=== PATIENT | male | born 1945 | race Caucasian/White ===

== ENCOUNTER 2017-02-14 09:44 | Outpatient (CLI) | payer MEDICARE, OTHER | END 2017-02-14 09:45 | disposition home or self-care (01) | LOC: SC 09:44 | PROVIDERS: ATTEND Specialist | DX: G47.30 Sleep apnea, unspecified (principal); G47.8 Other sleep disorders; R06.83 Snoring; G47.10 Hypersomnia, unspecified | CPT/HCPCS: 99205; G0463; 99212 ==

== ENCOUNTER 2017-02-17 22:20 | Outpatient (CLI) | payer MEDICARE, OTHER | END 2017-02-17 22:21 | disposition home or self-care (01) | LOC: SC 22:20 | PROVIDERS: ATTEND Specialist | DX: G47.33 Obstructive sleep apnea (adult) (pediatric) (principal); G47.31 Primary central sleep apnea | CPT/HCPCS: 95810 ==

== ENCOUNTER 2017-02-28 09:31 | Outpatient (CLI) | payer MEDICARE, OTHER | END 2017-02-28 09:32 | disposition home or self-care (01) | LOC: SC 09:31 | PROVIDERS: ATTEND Specialist | DX: G47.33 Obstructive sleep apnea (adult) (pediatric) (principal); G47.31 Primary central sleep apnea | CPT/HCPCS: 99213; G0463; 99212 ==

== ENCOUNTER 2017-03-24 06:21 | Emergency (ER) | payer MEDICARE, OTHER ==
--- NOTE | 2017-03-24 06:51 | ED Physician Documentation ---
History of Present Illness - History obtained from History obtained from: Patient - History of Present Illness Timing: Yesterday <Ganesh Garcia - Last Filed: 03/24/17 06:49> <Michael Lee - Last Filed: 03/24/17 09:21> - Stated complaint Stated Complaint: R LEG SWELLING - Chief complaint Chief Complaint: Ext Problem - Additonal information Additional information: 71-year-old diabetic male with history of previous atrial fibrillation who is on Xarelto as developed swelling of the right lower extremity that extends up into his thigh. He has exquisite tenderness to the right lateral malleolus and this is unusual for him. He does have occasionally swelling to his right lower extremity that has been much less since he has had his knee replaced. He did spend some time walking around yesterday and today he has the swelling and he has the pain in the ankle. He did not injure his ankle. (Ganesh Garcia) Review of Systems Constitutional: denies: Fever Nose: denies: Congestion Throat: denies: Sore throat Cardiac: denies: Chest pain / pressure, Palpitations Respiratory: denies: Dyspnea, Cough GI: denies: Nausea, Vomiting : denies: Dysuria, Frequency Skin: denies: Rash Musculoskeletal: reports: Extremity pain, Joint pain, Extremity swelling, Joint swelling, Pain with weight bearing. denies: Neck pain, Back pain Neurologic: denies: Generalized weakness, Focal weakness, Numbness <Ganesh Garcia - Last Filed: 03/24/17 06:49> PD PAST MEDICAL HISTORY - Past Medical History Past Medical History: Yes Cardiovascular: Hypertension, Coronary artery disease Neuro: None Endocrine/Autoimmune: Type 2 diabetes Psych: None Musculoskeletal: Osteoarthritis - Past Surgical History General: Bowel surgery Cardiovascular: Coronary stent - Social History Does the pt smoke?: No Smoking Status: Never smoker Does the pt drink ETOH?: No Does the pt have substance abuse?: No - Immunizations Immunizations are current?: Yes - POLST Patient has POLST: No <Ganesh Garcia - Last Filed: 03/24/17 06:49> <Michael Lee - Last Filed: 03/24/17 09:21> - Present Medications Home Medications: Ambulatory Orders Medication Instructions Recorded Confirmed Aspirin Chewable [St Christoph 81 mg PO DAILY 12/02/13 08/29/16 Aspirin] Atorvastatin Calcium [Lipitor] 20 mg ORAL ONCEDAILY 12/02/13 08/29/16 Clopidogrel [Plavix] 75 mg PO DAILY 12/02/13 08/29/16 Glipizide 5 mg ORAL BID 12/02/13 08/29/16 Lisinopril [Zestril] 10 mg PO DAILY 12/02/13 08/29/16 Metoprolol Succinate 25 mg ORAL BID 12/02/13 03/24/17 Tamsulosin [Flomax] 0.4 mg PO DAILY 12/02/13 08/29/16 Diphenoxylate/Atropine [Lomotil] 1 each PO QID PRN #10 tablet 10/19/15 Insulin NPH Hum/Reg Insulin Hm 100 unit SQ BID 08/29/16 08/29/16 [Novolin 70-30 100 Unit/ml Vial] Colchicine 0.6 mg PO BID #14 capsule 03/24/17 Rivaroxaban [Xarelto] 20 mg PO DAILY 03/24/17 03/24/17 oxyCODONE/ACET 5/325 [Percocet 5 1 each PO Q4-6H PRN #16 tablet 03/24/17 mg/325 mg] - Allergies Allergies/Adverse Reactions: Allergies Allergy/AdvReac Type Severity Reaction Status Date / Time No Known Drug Allergies Allergy Verified 08/29/16 20:42 PD ED PE NORMAL - Vitals Vital signs reviewed: Yes (Normal) - General General: Alert and oriented X 3, No acute distress, Well developed/nourished - HEENT HEENT: Atraumatic, PERRL - Respiratory Respiratory: No respiratory distress - Derm Derm: Normal color, Warm and dry, No rash - Extremities Extremities: No deformity, Other (There is swelling of the right leg including the foot calf and up into the thigh. There is minimal tenderness to the posterior calf there is exquisite tenderness to the right lateral malleolus. There is tenderness to movement of the foot.) - Neuro Neuro: No motor deficit, No sensory deficit - Psych Psych: Normal mood, Normal affect <Ganesh Garcia - Last Filed: 03/24/17 06:49> - Vitals Vitals: Vital Signs - 24 hr 03/24/17 06:28 Temperature 36.5 C Heart Rate 71 Respiratory 16 Rate Blood Pressure 129/71 O2 Saturation 98 Oxygen O2 Source [With Activity] Room air O2 Source Room air - Labs Labs: Laboratory Tests 03/24/17 03/24/17 08:16 08:16 WBC 7.6 RBC 4.06 L Hgb 12.5 L Hct 36.1 L MCV 89.0 MCH 30.9 MCHC 34.7 RDW 15.8 H Plt Count 170 MPV 7.6 Neut # 5.7 Lymph # 1.1 L Howard # 0.6 Eos # 0.2 Baso # 0.0 Absolute Nucleated RBC 0.00 Nucleated RBCs 0.0 Sodium 134 L Potassium 4.9 Chloride 104 Carbon Dioxide 23 Anion Gap 7.0 BUN 26 H Creatinine 1.1 Estimated GFR (MDRD) 66 L Glucose 203 H Uric Acid 8.0 H Calcium 9.7 PD MEDICAL DECISION MAKING - ED course Complexity details: considered differential, d/w patient <Ganesh Garcia - Last Filed: 03/24/17 06:49> <Michael Lee - Last Filed: 03/24/17 09:21> - ED course ED course: 71-year-old male has developed swelling in his right lower extremity that is generalized he has a history of this previously and today is here because of marked tenderness to the ankle joint. He did not have history of injury to the ankle. He does have a history previously of gout that is usually been in the toe. When I have examined the patient he does have exquisite tenderness to the lateral malleolus consistent with gout. Here in the emergency department I thought it important to rule out DVT and of ordered a duplex venous exam. In addition he is treated in the emergency department with dexamethasone and Toradol.I have discussed with the patient that he will need to use his sliding scale insulin having been given the dexamethasone. (Ganesh Garcia) This patient was signed out to me pending evaluation of his leg with duplex ultrasound. He presented primarily with right ankle pain which she has frequently although the pain on this occurrence was a little worse and continues to get worse. Normally has stiffness ankle and with walking it goes away. He also says he has a distant history of gout. He denies any significant swelling of the leg and this is really his pain is located at the ankle joint and it feels stiff and swollen. On examination he has had a total knee replacement on that right leg and really do not see any significant change in size when the right is compared with the left. The right ankle is slightly swollen and warm to touch in comparison with the unaffected left. From a vascular standpoint he has great pulses and normal coloration of the skin. Radiographs of the ankle were performed and a formal read is not present at this time but it looks like he has mild arthritic changes. Blood work demonstrates elevated uric acid at 8 and clinically and by testing and think this patient has gout. He will be placed Short course of colchicine, she just this on a short course of colchicine and careful use of nonsteroidal anti- inflammatory since he does have some evidence of mild chronic kidney disease. (Michael Lee) Departure <Ganesh Garcia - Last Filed: 03/24/17 06:49> - Departure Record reviewed to determine appropriate education?: Yes <Michael Lee - Last Filed: 03/24/17 09:21> - Departure Disposition: 01 Home, Self Care Clinical Impression: Gout Pain of lower extremity Qualifiers: Laterality: right Qualified Code(s): M79.604 - Pain in right leg Condition: Good Instructions: ED Arthritis Gout Follow-Up: Ru Desir MD [Primary Care Provider] - Prescriptions: Colchicine 0.6 mg PO BID #14 capsule oxyCODONE/ACET 5/325 [Percocet 5 mg/325 mg] 1 each PO Q4-6H PRN #16 tablet PRN Reason: Pain
[2017-03-24] MEDS ORDERED: CHERRY SYRUP 10 ML UDC PO ONE (06:54)
[2017-03-24] MEDS ORDERED: DEXAMETHASONE 10 MG/ML VIAL ONE (06:54)
[2017-03-24] MEDS ORDERED: KETOROLAC 60 MG/2 ML VIAL ONE (06:55)
[2017-03-24] MEDS: KETOROLAC 60 MG/2 ML VIAL IM STA ×2 (06:58→08:50)
[2017-03-24] MEDS: DEXAMETHASONE 10 MG/ML VIAL PO STA (06:59)
--- NOTE | 2017-03-24 08:06 | Ultrasound Preliminary Report ---
Exam: US Duplex Ext Veins Right IMPRESSION: No evidence of right lower extremity deep venous thrombosis. [facility] SITE ID: [id number]
--- NOTE | 2017-03-24 08:08 | Ultrasound Report ---
EXAM: RIGHT LOWER EXTREMITY VENOUS ULTRASOUND EXAM DATE: 03/24/2017 07:53 AM. CLINICAL HISTORY: Swelling and pain to entire leg. COMPARISON: None. TECHNIQUE: Real-time sonographic vascular imaging was performed by the drywall installer through the lower extremity utilizing both color-flow and Doppler spectral analysis. Multiple personnel representative static vinod ges were saved for review. FINDINGS: Common Femoral Vein (CFV): Normal. CFV-GSV Junction: Normal. Profunda Femoral Vein (PFV): Normal. Femoral Vein (FV) Prox: Normal. Femoral Vein (FV) Mid: Normal. Femoral Vein (FV) Dist: Normal. Popliteal Vein: Normal. Posterior Tibial Veins: Patent. Peroneal Veins: Patent. Other: None. IMPRESSION: No evidence of right lower extremity deep venous thrombosis. [facility] Referring Provider Line: [phone] SITE ID: [id number]
[2017-03-24 08:22] LABS: BASOPHILS % (AUTO) 0.4 %; EOSINOPHILS # (AUTO) 0.2 10^3/uL (0.0-0.7); EOSINOPHILS % (AUTO) 2.2 %; HCT - HEMATOCRIT 36.1 % (42.0-52.0); HGB - HEMOGLOBIN 12.5 g/dL (14.0-18.0); LYMPHOCYTES # (AUTO) 1.1 10^3/uL (1.5-3.5); LYMPHOCYTES % (AUTO) 14.2 %; MEAN CORPUSCULAR HEMOGLOBIN 30.9 pg (27.0-31.0); MEAN CORPUSCULAR HGB CONC 34.7 g/dL (32.0-36.0); MEAN PLATELET VOLUME 7.6 fL (7.4-11.4); MONOCYTES # (AUTO) 0.6 10^3/uL (0.0-1.0); MONOCYTES % (AUTO) 7.7 %; NEUTROPHILS # (AUTO) 5.7 10^3/uL (1.5-6.6); NEUTROPHILS % (AUTO) 75.5 %; RED BLOOD COUNT 4.06 10^6/uL (4.70-6.10); RED CELL DISTRIBUTION WIDTH 15.8 % (12.0-15.0); UNCORRECTED WHITE BLOOD COUNT 7.6 x10^3/uL; WHITE BLOOD COUNT 7.6 x10^3/uL (4.8-10.8)
[2017-03-24 08:34] LABS: CALCIUM 9.7 mg/dL (8.5-10.3); CREATININE 1.1 mg/dL (0.6-1.2); POTASSIUM 4.9 mmol/L (3.5-5.0)
[2017-03-24] MEDS ORDERED: KETOROLAC 30 MG/ML VIAL ONE (08:46)
[2017-03-24] MEDS: MORPHINE 2 MG/ML SYRINGE IVP STA (08:50)
[2017-03-24] MEDS: SODIUM CHLORIDE 0.9% 1,000 ML IV ONE (08:50)
[2017-03-24] MEDS: KETOROLAC 60 MG/2 ML VIAL IVP STA (08:50)
[2017-03-24] MEDS: HYDROcod/ACETAM 5/325 MG TABLET PO STA (08:50)
--- NOTE | 2017-03-24 09:16 | XRAY Preliminary Report ---
Exam: XR Ankle 3 View RT IMPRESSION: Soft tissue swelling without underlying bony pathology right ankle [facility] SITE ID: [id number]
--- NOTE | 2017-03-24 09:18 | XRAY Report ---
EXAM: RIGHT ANKLE RADIOGRAPHY EXAM DATE: 03/24/2017 09:02 AM. CLINICAL HISTORY: Ankle swelling. COMPARISON: None. TECHNIQUE: 3 views. FINDINGS: Bones: No fractures or bone lesions. Plantar calcaneal spur Joints: Normal. No effusion. No subluxations. The ankle mortise is normally aligned. Soft Tissues: Lateral soft tissue swelling. Vascular calcification. IMPRESSION: Soft tissue swelling without underlying bony pathology right ankle [facility] Referring Provider Line: [phone] SITE ID: [id number]
[2017-03-24 09:33] VITALS: BP 133/64
== END 2017-03-24 09:33 | disposition home or self-care (01) ==
LOC: ED 06:21
DX: M10.9 Gout, unspecified (principal); M79.661 Pain in right lower leg; I48.91 Unspecified atrial fibrillation; Z79.01 Long term (current) use of anticoagulants; E11.9 Type 2 diabetes mellitus without complications; Z79.4 Long term (current) use of insulin; I10 Essential (primary) hypertension; I25.10 Atherosclerotic heart disease of native coronary artery without angina pectoris; M19.90 Unspecified osteoarthritis, unspecified site; Z79.82 Long term (current) use of aspirin
CPT/HCPCS: 36415; 80048; 84550; 85025; 96372; 99283

== ENCOUNTER 2017-03-28 19:43 | Outpatient (CLI) | payer MEDICARE, OTHER | END 2017-03-28 19:44 | disposition home or self-care (01) | LOC: SC 19:43 | PROVIDERS: ATTEND Specialist | DX: G47.33 Obstructive sleep apnea (adult) (pediatric) (principal); G47.61 Periodic limb movement disorder; Z68.39 Body mass index [BMI] 39.0-39.9, adult | CPT/HCPCS: 95811 ==

== ENCOUNTER 2017-04-12 14:14 | Outpatient (CLI) | payer MEDICARE, OTHER | END 2017-04-12 14:15 | disposition home or self-care (01) | LOC: SC 14:14 | PROVIDERS: ATTEND Nurse Practitioner Family | DX: G47.33 Obstructive sleep apnea (adult) (pediatric) (principal) | CPT/HCPCS: 99214; G0463; 99212 ==

== ENCOUNTER 2017-06-13 10:18 | Outpatient (CLI) | payer MEDICARE, OTHER | END 2017-06-13 10:19 | disposition home or self-care (01) | LOC: SC 10:18 | PROVIDERS: ATTEND Specialist | DX: G47.33 Obstructive sleep apnea (adult) (pediatric) (principal) | CPT/HCPCS: 99214; G0463; 99212 ==

== ENCOUNTER 2017-07-13 18:57 | Outpatient (CLI) | payer MEDICARE, OTHER ==
--- NOTE | 2017-07-14 08:24 | Ultrasound Report ---
EXAM: LEFT LOWER EXTREMITY VENOUS ULTRASOUND EXAM DATE: 07/13/2017 09:07 PM. CLINICAL HISTORY: LEG PAIN, LEFT. COMPARISON: None. TECHNIQUE: Real-time sonographic vascular imaging was performed by the heel burnisher through the lower extremity utilizing both color-flow and Doppler spectral analysis. Multiple community service representative static vinod ges were saved for review. FINDINGS: Common Femoral Vein (CFV): Normal. CFV-GSV Junction: Normal. Profunda Femoral Vein (PFV): Normal. Femoral Vein (FV) Prox: Normal. Femoral Vein (FV) Mid: Normal. Femoral Vein (FV) Dist: Normal. Popliteal Vein: Normal. Posterior Tibial Veins: Normal. Peroneal Veins: Normal. Other: None. IMPRESSION: No evidence for left lower extremity deep venous thrombosis. [facility] Referring Provider Line: [phone] SITE ID: [id number]
== END 2017-07-13 18:58 | disposition home or self-care (01) ==
LOC: DI 18:57
PROVIDERS: ATTEND Family Medicine
DX: M79.605 Pain in left leg (principal)
CPT/HCPCS: 76882

== ENCOUNTER 2017-07-13 19:01 | Outpatient (CLI) | payer MEDICARE, OTHER ==
--- NOTE | 2017-07-14 08:49 | Ultrasound Report ---
EXAM: LEFT LOWER EXTREMITY ULTRASOUND NONVASCULAR - LIMITED EXAM DATE: 07/13/2017 09:06 PM. CLINICAL HISTORY: Leg pain, left. COMPARISON: None. TECHNIQUE: Real-time scanning was performed by the technologist (interpreting radiologist not present ) with static images obtained. FINDINGS: There are multiple, parallel, elliptical-shaped hypoechoic foci within the deep soft tissue s of the lower leg all demonstrated in reported areas of pain, some apparently in areas of visible br uising also. At the lateral left hip it measures 1.1 x 0.5 x 1.4 cm, lateral knee 1.2 x 0.6 x 1.2, me dial knee 3.8 x 0.5 x 0.9 cm, anterior mid calf 1.3 x 0.4 cm. In areas of pain described as the distal SVC both medial and lateral regions, and areas of bruising a nd pain in the lateral ankle/calf mid to distal region, no sonographic abnormality is demonstrated. IMPRESSION: Multiple lentiform hypoechoic focal areas within the deep soft tissues of the left leg co rresponding with areas of pain and bruising. These have a high likelihood of representing areas of fo lucius hemorrhage/hematoma. However, they are not specific. Infection/abscess could not be excluded in t he appropriate clinical setting. [facility] Referring Provider Line: [phone] SITE ID: [id number]
== END 2017-07-13 19:02 | disposition home or self-care (01) ==
LOC: DI 19:01
PROVIDERS: ATTEND Family Medicine
DX: M79.605 Pain in left leg (principal)
CPT/HCPCS: 76882

== ENCOUNTER 2017-09-05 09:40 | Outpatient (CLI) | payer MEDICARE, OTHER ==
[2017-09-05 13:27] LABS: ALBUMIN/GLOBULIN RATIO 1.2 (1.0-2.2); BILIRUBIN,TOTAL 0.6 mg/dL (0.2-1.0); CALCIUM 9.5 mg/dL (8.5-10.3); CREATININE 1.3 mg/dL (0.6-1.2); POTASSIUM 4.6 mmol/L (3.5-5.0); TOTAL PROTEIN 7.5 g/dL (6.7-8.2)
[2017-09-05 13:49] LABS: HEMOGLOBIN A1C 0.83 g/dL
== END 2017-09-05 09:41 | disposition home or self-care (01) ==
LOC: LAB.WCP 09:40
PROVIDERS: ATTEND Family Medicine
DX: G47.33 Obstructive sleep apnea (adult) (pediatric) (principal); E11.9 Type 2 diabetes mellitus without complications; I48.91 Unspecified atrial fibrillation; I25.10 Atherosclerotic heart disease of native coronary artery without angina pectoris
CPT/HCPCS: 36415; 80053; 83036

== ENCOUNTER 2018-06-04 08:37 | Outpatient (CLI) | payer MEDICARE, OTHER ==
[2018-06-04 13:33] LABS: ALBUMIN 4.3 g/dL (3.2-5.5); ALBUMIN/GLOBULIN RATIO 1.4 (1.0-2.2); BILIRUBIN,TOTAL 0.7 mg/dL (0.2-1.0); CALCIUM 9.5 mg/dL (8.5-10.3); CREATININE 1.1 mg/dL (0.6-1.2); TOTAL PROTEIN 7.4 g/dL (6.7-8.2)
[2018-06-04 13:47] LABS: HEMOGLOBIN A1C 0.94 g/dL; HEMOGLOBIN A1C % 7.9 % (4.6-6.2)
== END 2018-06-04 08:38 | disposition home or self-care (01) ==
LOC: LAB.WCP 08:37
PROVIDERS: ATTEND Family Medicine
DX: D12.6 Benign neoplasm of colon, unspecified (principal); E11.22 Type 2 diabetes mellitus with diabetic chronic kidney disease; N18.3 Chronic kidney disease, stage 3 (moderate); I48.0 Paroxysmal atrial fibrillation; I25.10 Atherosclerotic heart disease of native coronary artery without angina pectoris
CPT/HCPCS: 36415; 80053; 82043; 83036

== ENCOUNTER 2018-06-19 09:48 | Outpatient (CLI) | payer MEDICARE, OTHER | END 2018-06-19 09:49 | disposition home or self-care (01) | LOC: SC 09:48 | PROVIDERS: ATTEND Nurse Practitioner Family | DX: G47.33 Obstructive sleep apnea (adult) (pediatric) (principal) | CPT/HCPCS: 99214; G0463; 99212 ==

== ENCOUNTER 2018-07-23 08:48 | Outpatient (CLI) | payer MEDICARE, OTHER | END 2018-07-23 08:49 | disposition home or self-care (01) | LOC: SC 08:48 | PROVIDERS: ATTEND Nurse Practitioner Family | DX: G47.33 Obstructive sleep apnea (adult) (pediatric) (principal) | CPT/HCPCS: 99214; G0463; 99212 ==

== ENCOUNTER 2018-09-04 08:00 | Outpatient (CLI) | payer MEDICARE, OTHER ==
[2018-09-04 13:09] LABS: ALBUMIN 3.9 g/dL (3.2-5.5); ALBUMIN/GLOBULIN RATIO 1.3 (1.0-2.2); ALKALINE PHOSPHATASE 51 IU/L (42-121); ALT ALANINE AMINOTRANSFERASE 26 IU/L (10-60); AST ASPARTATE AMINOTRANSFERASE 19 IU/L (10-42); BILIRUBIN,TOTAL 0.8 mg/dL (0.2-1.0); BUN - BLOOD UREA NITROGEN 22 mg/dL (6-20); CALCIUM 9.2 mg/dL (8.5-10.3); CARBON DIOXIDE - CO2 27 mmol/L (21-32); CHLORIDE 102 mmol/L (101-111); CREATININE 1.1 mg/dL (0.6-1.2); GFR - MDRD 66 (>89); GLUCOSE 107 mg/dL (70-100); SODIUM 139 mmol/L (135-145)
[2018-09-04 13:21] LABS: HB2 TOTAL 13.7 g/dL; HEMOGLOBIN A1C 0.83 g/dL; HEMOGLOBIN A1C % 7.7 % (4.6-6.2)
== END 2018-09-04 23:59 | disposition home or self-care (01) ==
LOC: LAB.WCP 08:00
PROVIDERS: ATTEND Family Medicine
DX: E11.40 Type 2 diabetes mellitus with diabetic neuropathy, unspecified (principal); I48.0 Paroxysmal atrial fibrillation; Z13.29 Encounter for screening for other suspected endocrine disorder
CPT/HCPCS: 36415; 80053; 83036; 84443

== ENCOUNTER 2018-09-29 09:02 | Emergency (ER) | payer MEDICARE, OTHER ==
[2018-09-29 09:27] VITALS: BP 149/82
[2018-09-29] MEDS ORDERED: ACETAMINOPHEN 325 MG TABLET PO STA (09:57)
[2018-09-29] MEDS ORDERED: LIDOCAINE PATCH 5% TOP STA (09:57)
--- NOTE | 2018-09-29 10:00 | ED Physician Documentation ---
History of Present Illness - Stated complaint Stated Complaint: LEFT LEG PX - Chief complaint Chief Complaint: Ext Problem - Additonal information Additional information: hx from pt very active 73 male on coumadin for a fib pain bruise swellign to ant L aiken X few days not sure of any injury unless he banged it putting the cargo net into his car last week his wanted to be sure it was not infected no CP SOA etc Review of Systems Constitutional: denies: Fever Cardiac: denies: Chest pain / pressure Respiratory: denies: Dyspnea Musculoskeletal: reports: Extremity pain Endocrine: reports: Easy bruising / bleeding Immunocompromised: denies: Immunocompromised PD PAST MEDICAL HISTORY - Past Medical History Past Medical History: Yes Cardiovascular: Hypertension, Coronary artery disease Respiratory: Sleep apnea, CPAP use Endocrine/Autoimmune: Type 2 diabetes Psych: None Musculoskeletal: Osteoarthritis - Past Surgical History General: Bowel surgery Ortho: Knee replacement Cardiovascular: Coronary stent - Present Medications Home Medications: Ambulatory Orders Medication Instructions Recorded Confirmed Aspirin Chewable [St Christoph 81 mg PO DAILY 12/02/13 06/27/17 Aspirin] Atorvastatin Calcium [Lipitor] 20 mg ORAL ONCEDAILY 12/02/13 06/27/17 Glipizide 5 mg ORAL BIDWM 12/02/13 06/27/17 Lisinopril [Zestril] 10 mg PO DAILY 12/02/13 06/27/17 Tamsulosin [Flomax] 0.4 mg PO DAILY 12/02/13 06/27/17 Insulin NPH Hum/Reg Insulin Hm 40 unit SQ BIDWM 08/29/16 06/27/17 [Novolin 70-30 100 Unit/ml Vial] Fluticasone [Flonase] 1 sprays KIKA BID PRN 06/27/17 06/27/17 Furosemide 40 mg PO DAILY 06/27/17 06/27/17 Metformin HCl 1,000 mg PO BIDWM 06/27/17 06/27/17 Sotalol [Betapace] 80 mg PO BID 06/27/17 06/27/17 Insulin NPH Human [NovoLIN N] 08/14/17 Insulin NPH Human [NovoLIN N] 24 - 28 units SUBQ BID 08/14/17 08/14/17 Insulin Regular Human [NovoLIN R] 16 units SUBQ BIDWM 08/14/17 08/14/17 Warfarin Sodium [Coumadin] 10 mg PO DAILY 09/29/18 09/29/18 - Allergies Allergies/Adverse Reactions: Allergies Allergy/AdvReac Type Severity Reaction Status Date / Time No Known Drug Allergies Allergy Verified 08/29/16 20:42 - Social History Does the pt smoke?: No Smoking Status: Never smoker Does the pt drink ETOH?: No Does the pt have substance abuse?: No - Immunizations Immunizations are current?: Yes - POLST Patient has POLST: No PD ED PE NORMAL - Vitals Vital signs reviewed: Yes - Cardiac Cardiac: RRR - Respiratory Respiratory: No respiratory distress - Extremities Extremities: Other (focal pain and bruising to ant LLE, small whote spot upper medial aspect more c/w hypopigmented skin, no redness warmth streaking or head to suggest abscess, MSV intact) Results - Vitals Vitals: Vital Signs - 24 hr 09/29/18 09:23 Temperature 36.2 C L Heart Rate 78 Respiratory 20 Rate Blood Pressure 149/82 H O2 Saturation 98 Oxygen O2 Source [With Activity] Room air O2 Source Room air - Labs Labs: Laboratory Tests 09/29/18 09:54 Whole Blood INR 4.2 H Departure - Departure Disposition: Home, Self Care Clinical Impression: Contusion Qualifiers: Encounter type: initial encounter Contusion area: lower leg Laterality: left Qualified Code(s): S80.12XA - Contusion of left lower leg, initial encounter Condition: Good Instructions: ED Hematoma Follow-Up: Ru Desir MD [Primary Care Provider] - Comments: The xray was fine The leg does not appear to be infected - it is not red or warm and there are no streaks and the white spot seems to a hypopigmented area of skin not an abscess. Your INR was a touch high today at 4.2 - recommend hold the coumadin for one day then resume as before and have your PMD recheck the INR later this week Recommend ice wrapped in a towel applied for 20 minutes at a time several times a day. Tylenol for pain. Can also try applying a lidocaine patch over the bruise to ease the pain - may leave on for up to 12 hr a day.
--- NOTE | 2018-09-29 10:36 | XRAY Report ---
Reason: pain and bruise Procedure Date: 09/29/2018 Accession Number: [id number] / [id number] Procedure: XR - Tib/Fib LT CPT Code: FULL RESULT: EXAM: LEFT TIBIA/FIBULA RADIOGRAPHY EXAM DATE: 09/29/2018 10:16 AM. CLINICAL HISTORY: Pain and bruise. COMPARISON: None. TECHNIQUE: 2 views. FINDINGS: Bones: Bony mineralization appears appropriate. No acute fracture or focal osseous destruction. Joints: Alignment and joint spaces appear maintained. Soft Tissues: No radiopaque foreign body. Mild soft tissue swelling. A few small soft tissue calcifications. IMPRESSION: Soft tissue swelling. No acute fracture or dislocation. [facility]
== END 2018-09-29 11:08 | disposition home or self-care (01) ==
LOC: ED 09:02
DX: S80.12XA Contusion of left lower leg, initial encounter (principal); I10 Essential (primary) hypertension; E11.9 Type 2 diabetes mellitus without complications; Z79.01 Long term (current) use of anticoagulants; Z86.79 Personal history of other diseases of the circulatory system; Z79.4 Long term (current) use of insulin; X58.XXXA Exposure to other specified factors, initial encounter
CPT/HCPCS: 73590; 85610; 99283; A9270

== ENCOUNTER 2018-10-02 07:09 | Day surgery (SDC) | payer MEDICARE, OTHER ==
[2018-10-02] MEDS ORDERED: LACTATED RINGERS 1,000 ML IV ONE (07:37)
[2018-10-02] MEDS ORDERED: MIDAZOLAM 2 MG/2 ML VIAL IVP ONE (08:12)
[2018-10-02] MEDS ORDERED: fentaNYL 250 MCG/5 ML VIAL IVP ONE (08:12)
[2018-10-02 08:44] VITALS: BP 125/68
--- NOTE | 2018-10-02 10:41 | PROCEDURE REPORT ---
DATE OF SERVICE: 10/02/2018 Physician: Domingo Mathews MD PREOPERATIVE DIAGNOSIS: Screening colonoscopy. POSTOPERATIVE DIAGNOSIS: Incomplete colonoscopy. PROCEDURE PERFORMED: Aborted colonoscopy. INDICATIONS FOR PROCEDURE: The patient is a 73-year-old man who came to clinic requesting a normal s creening colonoscopy. PROCEDURE IN DETAIL: The risks, benefits were explained to the patient, who agreed to the procedure. He was taken to the operating room and given sedation. A timeout was performed, everyone in the ro om agreed with the procedure. We began by inserting a well-lubricated colonoscope in the rectal cavi ty. Immediately noted, the prep was terrible. Visualization was inadequate. After reaching the si gmoid colon, it was impossible to advance due to poor prep. Numerous attempts made to clean out the colon; however, it was just futile. The scope was then withdrawn, the procedure terminated. The pat ient was taken to recovery in stable condition. COMPLICATIONS: None. SPECIMEN: None. PLAN: To repeat the colonoscopy at a later date. TD: 10/02/2018 08:43
== END 2018-10-02 07:10 | disposition home or self-care (01) ==
LOC: SDS 07:09
PROVIDERS: ATTEND Surgery
PROC: 0DJD8ZZ Inspection of Lower Intestinal Tract, Via Natural or Artificial Opening Endoscopic (ICD-10-PCS; principal; 2018-10-02 08:15)
DX: Z12.11 Encounter for screening for malignant neoplasm of colon (principal); Z79.01 Long term (current) use of anticoagulants; E66.9 Obesity, unspecified; Z68.41 Body mass index [BMI] 40.0-44.9, adult
CPT/HCPCS: G0121; J3010; J7120

== ENCOUNTER 2018-11-22 08:00 | Outpatient (CLI) | payer MEDICARE, OTHER | END 2018-11-22 23:59 | disposition home or self-care (01) | LOC: LAB.WCP 08:00 | PROVIDERS: ATTEND Family Medicine | DX: I48.0 Paroxysmal atrial fibrillation (principal); Z79.01 Long term (current) use of anticoagulants ==

== ENCOUNTER 2018-12-06 08:00 | Outpatient (CLI) | payer MEDICARE, OTHER ==
[2018-12-06 13:28] LABS: ALBUMIN 4.2 g/dL (3.2-5.5); ALBUMIN/GLOBULIN RATIO 1.2 (1.0-2.2); BILIRUBIN,TOTAL 0.7 mg/dL (0.2-1.0); CALCIUM 9.2 mg/dL (8.5-10.3); CREATININE 1.1 mg/dL (0.6-1.2); TOTAL PROTEIN 7.7 g/dL (6.7-8.2); URIC ACID 8.3 mg/dL (2.6-7.2)
[2018-12-06 13:36] LABS: HB2 TOTAL 14.6 g/dL; HEMOGLOBIN A1C 0.88 g/dL; HEMOGLOBIN A1C % 7.7 % (4.6-6.2)
== END 2018-12-06 23:59 | disposition home or self-care (01) ==
LOC: LAB.WCP 08:00
PROVIDERS: ATTEND Family Medicine
DX: M10.9 Gout, unspecified (principal); E11.9 Type 2 diabetes mellitus without complications; I48.0 Paroxysmal atrial fibrillation; I25.10 Atherosclerotic heart disease of native coronary artery without angina pectoris
CPT/HCPCS: 36415; 80053; 83036; 84550

== ENCOUNTER 2019-01-01 08:00 | Outpatient (CLI) | payer MEDICARE, OTHER | END 2019-01-01 23:59 | disposition home or self-care (01) | LOC: LAB.WCP 08:00 | PROVIDERS: ATTEND Family Medicine | DX: I48.0 Paroxysmal atrial fibrillation (principal); Z79.01 Long term (current) use of anticoagulants ==

== ENCOUNTER 2019-01-15 08:00 | Outpatient (CLI) | payer MEDICARE, OTHER | END 2019-01-15 23:59 | disposition home or self-care (01) | LOC: LAB.WCP 08:00 | PROVIDERS: ATTEND Family Medicine | DX: I48.0 Paroxysmal atrial fibrillation (principal); Z79.01 Long term (current) use of anticoagulants ==

== ENCOUNTER 2019-02-06 08:00 | Outpatient (CLI) | payer MEDICARE, OTHER | END 2019-02-06 23:59 | disposition home or self-care (01) | LOC: LAB.WCP 08:00 | PROVIDERS: ATTEND Family Medicine | DX: I48.0 Paroxysmal atrial fibrillation (principal); Z79.01 Long term (current) use of anticoagulants ==

== ENCOUNTER 2019-02-13 08:00 | Outpatient (CLI) | payer MEDICARE, OTHER | END 2019-02-13 08:01 | disposition home or self-care (01) | LOC: LAB.WCP 08:00 | PROVIDERS: ATTEND Family Medicine | DX: I48.0 Paroxysmal atrial fibrillation (principal); Z79.01 Long term (current) use of anticoagulants ==

== ENCOUNTER 2019-02-27 08:00 | Outpatient (CLI) | payer MEDICARE, OTHER | END 2019-02-27 23:59 | disposition home or self-care (01) | LOC: LAB.WCP 08:00 | PROVIDERS: ATTEND Family Medicine | DX: I48.0 Paroxysmal atrial fibrillation (principal); Z79.01 Long term (current) use of anticoagulants ==

== ENCOUNTER 2019-03-08 09:40 | Outpatient (CLI) | payer MEDICARE, OTHER ==
[2019-03-08 13:48] LABS: ALBUMIN 3.9 g/dL (3.2-5.5); ALBUMIN/GLOBULIN RATIO 1.1 (1.0-2.2); BILIRUBIN,TOTAL 0.8 mg/dL (0.2-1.0); CALCIUM 9.6 mg/dL (8.5-10.3); CREATININE 1.1 mg/dL (0.6-1.2); TOTAL PROTEIN 7.4 g/dL (6.7-8.2)
[2019-03-08 14:01] LABS: HB2 TOTAL 14.3 g/dL; HEMOGLOBIN A1C 0.9 g/dL; HEMOGLOBIN A1C % 7.9 % (4.6-6.2)
== END 2019-03-08 09:41 | disposition home or self-care (01) ==
LOC: LAB.WCP 09:40
PROVIDERS: ATTEND Family Medicine
DX: E11.40 Type 2 diabetes mellitus with diabetic neuropathy, unspecified (principal); G47.33 Obstructive sleep apnea (adult) (pediatric); I48.0 Paroxysmal atrial fibrillation; E11.9 Type 2 diabetes mellitus without complications
CPT/HCPCS: 36415; 80053; 83036

== ENCOUNTER 2019-03-27 08:00 | Outpatient (CLI) | payer MEDICARE, OTHER | END 2019-03-27 08:01 | disposition home or self-care (01) | LOC: LAB.WCP 08:00 | PROVIDERS: ATTEND Family Medicine | DX: I48.0 Paroxysmal atrial fibrillation (principal); Z79.01 Long term (current) use of anticoagulants ==

== ENCOUNTER 2019-04-24 08:00 | Outpatient (CLI) | payer MEDICARE, OTHER | END 2019-05-14 23:59 | disposition home or self-care (01) | LOC: LAB.WCP 08:00 | PROVIDERS: ATTEND Family Medicine | DX: I48.0 Paroxysmal atrial fibrillation (principal); Z79.01 Long term (current) use of anticoagulants ==

== ENCOUNTER 2019-05-22 08:00 | Outpatient (CLI) | payer MEDICARE, OTHER | END 2019-05-22 23:59 | disposition home or self-care (01) | LOC: LAB.WCP 08:00 | PROVIDERS: ATTEND Family Medicine | DX: Z79.01 Long term (current) use of anticoagulants (principal); I48.91 Unspecified atrial fibrillation ==

== ENCOUNTER 2019-06-05 08:00 | Outpatient (CLI) | payer MEDICARE, OTHER ==
[2019-06-05 12:49] LABS: ALBUMIN/GLOBULIN RATIO 1.3 (1.0-2.2); BILIRUBIN,TOTAL 0.7 mg/dL (0.2-1.0); CALCIUM 9.2 mg/dL (8.5-10.3); CREATININE 1.2 mg/dL (0.6-1.2); TOTAL PROTEIN 7.2 g/dL (6.7-8.2)
[2019-06-05 12:55] LABS: HB2 TOTAL 14.5 g/dL; HEMOGLOBIN A1C 0.96 g/dL; HEMOGLOBIN A1C % 8.2 % (4.6-6.2)
[2019-06-05 13:02] LABS: CREATININE,URINE 54.3 mg/dL; MICROALBUM/CREATININE RATIO,UR 62.6 ug/mg (<30.0); MICROALBUMIN,URINE 3.4 mg/dL (0-300.0)
== END 2019-06-05 23:59 | disposition home or self-care (01) ==
LOC: LAB.WCP 08:00
PROVIDERS: ATTEND Family Medicine
DX: E11.22 Type 2 diabetes mellitus with diabetic chronic kidney disease (principal); N18.3 Chronic kidney disease, stage 3 (moderate); E66.9 Obesity, unspecified; I48.0 Paroxysmal atrial fibrillation; Z79.01 Long term (current) use of anticoagulants
CPT/HCPCS: 36415; 80053; 82043; 82570; 83036

== ENCOUNTER 2019-06-19 08:00 | Outpatient (CLI) | payer MEDICARE, OTHER | END 2019-06-19 23:59 | disposition home or self-care (01) | LOC: LAB.WCP 08:00 | PROVIDERS: ATTEND Family Medicine | DX: I48.0 Paroxysmal atrial fibrillation (principal); Z79.01 Long term (current) use of anticoagulants ==

== ENCOUNTER 2019-08-05 10:17 | Outpatient (CLI) | payer MEDICARE, OTHER ==
[2019-08-05 11:05] VITALS: BP 124/70
--- NOTE | 2019-08-05 11:05 | SLEEP CARE CONSULTATION ---
Information from patient questionnaire entered by Katie Valencia. I have reviewed and concur with the information entered by Katie Valencia. This document represents the service I personally performed and the decisions made by me, Carina Lee RN, MSN, BOILER/CHILLER TECHNICIAN. History of Present Illness Previous diagnosis: Severe, Obstructive Sleep Apnea-Hypopnea Syndrome, Central Sleep Apnea-Hypopnea Syndrome AHI: 51.4 Reason for follow up: annual Equipment type: CPAP Equipment obtained from: [employer] Mask style: Full face Backup mask available: Yes Last cushion change: 2 weeks ago Prior sleep studies: Yes CPAP Compliance Data - Data Reviewed with Patient Average duration of nightly device use: 6h 42m Compliance rate %: 97.8 Current pressure setting (cmH2O): 10-20 Humidity settin Heated hose settin Average residual AHI: 4.1 Average large leak: 17s Subjective Patient concerns: reports: mask leak noise (rare - monthly ). denies: aerophagia, mask discomfort, air blowing in eyes, condensation in mask/hose, nasal congestion, dry mouth, nose, throat, epistaxis Observed to snore while using device: No Current pressure setting perceived as: comfortable On therapy, patient: reports: sleeping better, awakening more refreshed, being more awake and alert during the day, more rested overall. denies: drowsiness while driving Initial [place] Sleepiness Scale score: 14 Current [place] Sleepiness Scale score: 6 Allergies and Home Medications Known drug allergies: No Home medication list reviewed: Yes Allergy and home medication list: Medication Name (generic/name brand) Strength & Dosage Flomax (Tamsulosin HCL) 0.4mg cap one daily Lipitor (Atorvastatin Calcium) 20mg tab one daily at bedtime Furosemide 20mg tab one daily every morning Betapace (Sotalol HCL) 80mg tab one twice daily Glipizide 5mg tab one twice daily Metformin HCL 1000mg tab one twice daily Novolin N 100 unit/ml SQ suspension Inject 34 units twice daily as directed Novolin R 100 unit/ml SQ injection soln. Inject 20 units twice daily as directed Coumadin (Warfarin Sodium) 5mg tab 7.5mg alternated with 10mg Aspirin EC 81mg tab one daily Lisinopril 20mg tab one daily Colcrys (Colchicine) 0.6mg tab as directed for gout Review of Systems Review of systems same as previous: Yes Physical Exam Blood Pressure: 124/70 Cuff size: long Heart Rate: 79 O2 Saturation: 96 Height: 6 ft 2 in Weight: 338 lb 9.6 oz Weight change since last visit: gained 13 pounds Body Mass Index: 43.4 BMI Classification: Obesity Class 3 Impression and Plan 1. Obstructive and Central Sleep Apnea-Hypopnea Syndrome, severe, with good treatment compliance and good apnea control. On CPAP therapy, the patient has better sleep quality and is more rested overall. He has gained about 13 pounds since last seen entertaining family/ friends. We discussed how continued weight gain can increase his apnea severity , CPAP requirements and overall health risks. Current BMI is 43.5 class 3 obesity. After discussion, he would like to lose 30 or more pounds. Diet modification also discussed of smaller portions and healthy content. We looked at BMI chart and ultimate weight loss goals. Thus I will change his auto CPAP pressure to [id number] to accommodate for weight loss. Currently the pressure is comfortable but he wakes to mask leaks occasionally when mask dislodged. The new pressure should reduce occurrence. I discussed symptoms to report for further pressure adjustment. He is encouraged to start with small weight loss goals. Patient's apnea severity and rationale for treatment to reduce apnea, improve sleep quality and reduce cardiovascular and cerebrovascular events was reviewed. I also reviewed the benefit of consistent device use of CPAP for hypertension, arrhythmia, diabetes. * * Change CPAP pressure to 8-15 cmH2O * Notify me if snoring with mask or feeling that the pressure is too much or too little * Attempt to lose weight * Return for follow up in 1 year , or sooner if concerns arise I spent 100% of this 25 minute visit face to face with the patient with greater than 50% of this was spent time counseling the patient and coordination of care.
== END 2019-08-05 10:18 | disposition home or self-care (01) ==
LOC: SC 10:17
PROVIDERS: ATTEND Nurse Practitioner Family
DX: G47.33 Obstructive sleep apnea (adult) (pediatric) (principal); G47.31 Primary central sleep apnea; E66.9 Obesity, unspecified; Z68.41 Body mass index [BMI] 40.0-44.9, adult
CPT/HCPCS: 99214; G0463; 99212

== ENCOUNTER 2019-08-09 08:00 | Outpatient (CLI) | payer MEDICARE, OTHER | END 2019-08-09 23:59 | disposition home or self-care (01) | LOC: LAB.WCP 08:00 | PROVIDERS: ATTEND Family Medicine | DX: Z79.01 Long term (current) use of anticoagulants (principal); I48.0 Paroxysmal atrial fibrillation ==

== ENCOUNTER 2019-08-28 08:00 | Outpatient (CLI) | payer MEDICARE, OTHER ==
[2019-08-28 13:02] LABS: CREATININE,URINE 155.1 mg/dL; MICROALBUM/CREATININE RATIO,UR 32.9 ug/mg (<30.0); MICROALBUMIN,URINE 5.1 mg/dL (0-300.0)
[2019-08-28 13:03] LABS: CALCIUM 9.7 mg/dL (8.5-10.3); CREATININE 1.2 mg/dL (0.6-1.2)
[2019-08-28 13:26] LABS: HB2 TOTAL 14.4 g/dL; HEMOGLOBIN A1C 0.99 g/dL; HEMOGLOBIN A1C % 8.4 % (4.6-6.2)
== END 2019-08-28 23:59 | disposition home or self-care (01) ==
LOC: LAB.WCP 08:00
PROVIDERS: ATTEND Family Medicine
DX: E11.42 Type 2 diabetes mellitus with diabetic polyneuropathy (principal)
CPT/HCPCS: 36415; 80048; 82043; 82570; 83036

== ENCOUNTER 2019-09-05 08:00 | Outpatient (CLI) | payer MEDICARE, OTHER | END 2019-09-05 23:59 | disposition home or self-care (01) | LOC: LAB.WCP 08:00 | PROVIDERS: ATTEND Family Medicine | DX: Z79.01 Long term (current) use of anticoagulants (principal); I48.0 Paroxysmal atrial fibrillation ==

== ENCOUNTER 2019-10-01 08:00 | Outpatient (CLI) | payer MEDICARE, OTHER | END 2019-10-01 23:59 | disposition home or self-care (01) | LOC: LAB.WCP 08:00 | PROVIDERS: ATTEND Family Medicine | DX: Z79.01 Long term (current) use of anticoagulants (principal); I48.0 Paroxysmal atrial fibrillation ==

== ENCOUNTER 2019-10-29 08:00 | Outpatient (CLI) | payer MEDICARE, OTHER | END 2019-10-29 23:59 | disposition home or self-care (01) | LOC: LAB.WCP 08:00 | PROVIDERS: ATTEND Family Medicine | DX: I48.0 Paroxysmal atrial fibrillation (principal); Z79.01 Long term (current) use of anticoagulants ==

== ENCOUNTER 2019-11-26 08:00 | Outpatient (CLI) | payer MEDICARE, OTHER | END 2019-11-26 23:59 | disposition home or self-care (01) | LOC: LAB.WCP 08:00 | PROVIDERS: ATTEND Family Medicine | DX: I48.0 Paroxysmal atrial fibrillation (principal); Z79.01 Long term (current) use of anticoagulants ==

== ENCOUNTER 2019-11-28 07:00 | Outpatient (CLI) | payer MEDICARE, OTHER ==
[2019-11-28 12:28] LABS: CREATININE 1.1 mg/dL (0.6-1.2)
[2019-11-28 12:32] LABS: HEMOGLOBIN A1C 0.98 g/dL; HEMOGLOBIN A1C % 8.1 % (4.6-6.2)
[2019-11-28 12:49] LABS: CREATININE,URINE 65.3 mg/dL; MICROALBUM/CREATININE RATIO,UR 55.1 ug/mg (<30.0); MICROALBUMIN,URINE 3.6 mg/dL (0-300.0)
== END 2019-11-28 23:59 | disposition home or self-care (01) ==
LOC: LAB.WCP 07:00
PROVIDERS: ATTEND Family Medicine
DX: E11.22 Type 2 diabetes mellitus with diabetic chronic kidney disease (principal); I12.9 Hypertensive chronic kidney disease with stage 1 through stage 4 chronic kidney disease, or unspecified chronic kidney disease; N18.3 Chronic kidney disease, stage 3 (moderate); I25.10 Atherosclerotic heart disease of native coronary artery without angina pectoris
CPT/HCPCS: 36415; 80048; 82043; 82570; 83036

== ENCOUNTER 2020-02-18 08:00 | Outpatient (CLI) | payer MEDICARE, OTHER | END 2020-02-18 23:59 | disposition home or self-care (01) | LOC: LAB.WCP 08:00 | PROVIDERS: ATTEND Family Medicine | DX: I48.0 Paroxysmal atrial fibrillation (principal); Z79.01 Long term (current) use of anticoagulants ==

== ENCOUNTER 2020-03-16 08:33 | Emergency (ER) | payer MEDICARE, OTHER ==
[2020-03-16 08:41] VITALS: BP 164/76
--- NOTE | 2020-03-16 11:52 | Ultrasound Report ---
PROCEDURE: Duplex Ext Veins Right INDICATIONS: swelling, pain TECHNIQUE: Real-time imaging, as well as color and pulse Doppler interrogation, were performed of the lower extr emity deep veins from the inguinal ligament to the popliteal fossa. COMPARISON: None. FINDINGS: The deep veins are normally compressible, and free of intraluminal thrombus. Color and pu lse Doppler demonstrate normal phasic intraluminal flow. There is normal augmentation response to di stal compression maneuver. There is calf edema in the area of pain. IMPRESSION: No evidence of deep venous thrombosis. Reviewed by: Meek Gillespie MD on 03/16/2020 11:51 AM PDT Approved by: Meek Gillespie MD on 03/16/2020 11:51 AM PDT Station ID: [id number]
--- NOTE | 2020-03-16 11:52 | ED Physician Documentation ---
PD HPI LOWER EXT INJURY - Stated complaint Stated Complaint: R LEG PX - Chief complaint Chief Complaint: Wound - Additional information Additional information: Patient comes emergency department complaining of pain in his left calf. He states that this started 2 days ago after he worked in the yard, But that he does not remember any distinct injury. He wondered if he had a "bug bite", but did not really notice any skin changes. He just states that he has noticed a firm, painful area at the side of his left calf. He states that it is tender to the touch and that it hurts when he walks. No other complaints at this time. Patient has not had any fevers or chills. He has not felt sick in any other way. He states he is otherwise healthy. No history of DVT or PE. No other complaints at this time. Patient is not a diabetic. Review of Systems Ten Systems: 10 systems reviewed and negative Constitutional: reports: Reviewed and negative Eyes: reports: Reviewed and negative Ears: reports: Reviewed and negative Nose: reports: Reviewed and negative Throat: reports: Reviewed and negative Cardiac: reports: Reviewed and negative Respiratory: reports: Reviewed and negative GI: reports: Reviewed and negative : reports: Reviewed and negative Skin: reports: Reviewed and negative Musculoskeletal: reports: Extremity pain, Pain with weight bearing Neurologic: reports: Reviewed and negative Psychiatric: reports: Reviewed and negative Endocrine: reports: Reviewed and negative Immunocompromised: reports: Reviewed and negative PD PAST MEDICAL HISTORY - Past Medical History Cardiovascular: Hypertension, High cholesterol, Coronary artery disease, Angina, Atrial fibrillation Respiratory: Shortness of breath, Sleep apnea, CPAP use Endocrine/Autoimmune: Type 2 diabetes GI: Colon polyps, Diverticulitis : None HEENT: None Psych: None Musculoskeletal: Osteoarthritis, Gout Derm: None - Past Surgical History General: Bowel surgery, Colonoscopy Ortho: Knee replacement Cardiovascular: Coronary stent - Present Medications Home Medications: Ambulatory Orders Medication Instructions Recorded Confirmed Aspirin Chewable [St Christoph 81 mg PO DAILY 12/02/13 06/27/17 Aspirin] Atorvastatin Calcium [Lipitor] 20 mg ORAL ONCEDAILY 12/02/13 06/27/17 Glipizide 5 mg ORAL BIDWM 12/02/13 06/27/17 lisinopriL [Zestril] 10 mg PO DAILY 12/02/13 06/27/17 Insulin NPH Hum/Reg Insulin Hm 40 unit SQ BIDWM 08/29/16 06/27/17 [Novolin 70-30 100 Unit/ml Vial] Furosemide 40 mg PO DAILY 06/27/17 06/27/17 Metformin HCl 1,000 mg PO BIDWM 06/27/17 06/27/17 Sotalol [Betapace] 80 mg PO BID 06/27/17 06/27/17 Insulin NPH Human [NovoLIN N] 08/14/17 Insulin NPH Human [NovoLIN N] 24 - 28 units SUBQ BID 08/14/17 08/14/17 Insulin Regular Human [NovoLIN R] 16 units SUBQ BIDWM 08/14/17 08/14/17 Warfarin Sodium [Coumadin] 10 mg PO DAILY 09/29/18 09/29/18 - Allergies Allergies/Adverse Reactions: Allergies Allergy/AdvReac Type Severity Reaction Status Date / Time No Known Drug Allergies Allergy Verified 03/16/20 08:38 - Social History Does the pt smoke?: No Smoking Status: Never smoker Does the pt drink ETOH?: No Does the pt have substance abuse?: No - Immunizations Immunizations are current?: Yes - POLST Patient has POLST: No PD ED PE NORMAL - Vitals Vital signs reviewed: Yes - General General: Alert and oriented X 3, No acute distress - HEENT HEENT: Atraumatic, PERRL, EOMI, Moist mucous membranes - Neck Neck: Supple, no meningeal sign - Cardiac Cardiac: RRR, No murmur, Strong equal pulses - Respiratory Respiratory: No respiratory distress, Clear bilaterally - Derm Derm: Normal color, Warm and dry, Other (No erythema of R lower leg.) - Extremities Extremities: No deformity, Other (Mild edema RLE. Point tenderness with mild induration lateral to mid-anterior tibial area. ) - Neuro Neuro: Alert and oriented X 3 - Psych Psych: Normal mood, Normal affect Results - Vitals Vitals: Oxygen O2 Source [With Activity] Room air O2 Source Room air - Rads (name of study) US RLE Radiology: Final report received, EMP read indepedently, See rad report (No clot. Localized ST edema of anterolateral musculature. ) PD MEDICAL DECISION MAKING - ED course Complexity details: reviewed results, re-evaluated patient, considered differential, d/w patient ED course: Pt was worked up with US of the leg, which was unremarkable, except for localized soft tissue edema in the area of tenderness/pain. I have d/w the pt that there is no sign of infection at this time, and that this localized inflammation should be expected to resolve on its own. We have discussed symptomatic management at home, as well as the usual indications for return. Departure - Departure Disposition: 01 Home, Self Care Clinical Impression: Muscle inflammation Qualifiers: Myositis type: unspecified type Myositis location: lower leg Laterality: right Qualified Code(s): M60.861 - Other myositis, right lower leg Condition: Stable Instructions: ED Strain Muscle Ext Comments: Your ultrasound does not show a blood clot or any sort of fluid collection. It appears that you have a focused area of swelling and inflammation in the muscle, which may be due to overuse/low impact strain. This is expected to heal on its own and does not appear to be infectious. There is no evidence of an emergent cause of your pain and swelling. You may use ice and ibuprofen and elevate your leg to help with the swelling. Please follow-up with your primary care physician if this does not show signs of improvement within the next week. Discharge Date/Time: 03/16/20 12:21
== END 2020-03-16 12:21 | disposition home or self-care (01) ==
LOC: ED 08:33
DX: M60.861 Other myositis, right lower leg (principal); I48.91 Unspecified atrial fibrillation; Z79.01 Long term (current) use of anticoagulants; I10 Essential (primary) hypertension; E11.9 Type 2 diabetes mellitus without complications; Z79.4 Long term (current) use of insulin; Z79.82 Long term (current) use of aspirin
CPT/HCPCS: 99284

== ENCOUNTER 2020-03-17 08:00 | Outpatient (CLI) | payer MEDICARE, OTHER | END 2020-03-17 23:59 | disposition home or self-care (01) | LOC: LAB.WCP 08:00 | PROVIDERS: ATTEND Family Medicine | DX: I48.0 Paroxysmal atrial fibrillation (principal); Z79.01 Long term (current) use of anticoagulants ==

== ENCOUNTER 2020-05-12 08:00 | Outpatient (CLI) | payer MEDICARE, OTHER | END 2020-05-12 23:59 | disposition home or self-care (01) | LOC: LAB.WCP 08:00 | PROVIDERS: ATTEND Physician Assistant Medical | DX: I48.0 Paroxysmal atrial fibrillation (principal); Z79.01 Long term (current) use of anticoagulants ==

== ENCOUNTER 2020-06-09 08:00 | Outpatient (CLI) | payer MEDICARE, OTHER | END 2020-06-09 23:59 | disposition home or self-care (01) | LOC: LAB.WCP 08:00 | PROVIDERS: ATTEND Family Medicine | DX: I48.0 Paroxysmal atrial fibrillation (principal); Z79.01 Long term (current) use of anticoagulants ==

== ENCOUNTER 2020-06-25 09:51 | Outpatient (CLI) | payer MEDICARE, OTHER ==
--- NOTE | 2020-06-25 10:36 | SLEEP CARE CONSULTATION ---
Information from patient questionnaire entered by Amanda Stewart. I have reviewed and concur with the information entered by Amanda Stewart. This document represents the service I personally performed and the decisions made by me, Carina Lee, RN, MSN, [employer]. History of Present Illness Service Date and Time: 06/25/2020 0951 Previous diagnosis: Severe, Obstructive Sleep Apnea-Hypopnea Syndrome, Central Sleep Apnea-Hypopnea Syndrome AHI: 51.4 (in 2017) Reason for follow up: annual (last seen 2019) Equipment type: CPAP Equipment obtained from: [employer] (getting supplies as needed) Mask style: Full face Backup mask available: Yes (old mask ) Last cushion change: 1st of month Prior sleep studies: Yes Year and Where: 2016 - [facility] Type of Sleep Study: Polysomnography CPAP Compliance Data - Data Reviewed with Patient Average duration of nightly device use: 6.95 Compliance rate %: 98.9 (180 days) Current pressure setting (cmH2O): 8-15 Humidity settin Heated hose settin Average residual AHI: 6.1 (90% average pressure 11.7cmH20, median 9.7cmH20) Central apnea: 0.1 Obstructive apnea: 1.3 Hypopnea: 4.6 Average large leak: 2 sec Subjective Patient concerns: denies: aerophagia, mask discomfort, air blowing in eyes, mask leak noise, condensation in mask/hose, nasal congestion, dry mouth, nose, throat, epistaxis, other Observed to snore while using device: No Current pressure setting perceived as: comfortable On therapy, patient: reports: sleeping better, awakening more refreshed, being more awake and alert during the day, more rested overall. denies: drowsiness while driving Initial [place] Sleepiness Scale score: 14 (in 2017) Current [place] Sleepiness Scale score: 8 Allergies and Home Medications Known drug allergies: No Home medication list reviewed: Yes (no changes from 2019) Review of Systems Review of systems same as previous: Yes Physical Exam Blood Pressure: 128/58 Cuff size: long Heart Rate: 77 (irregular - 6 pauses noted over 60 seconds / no dyspnea or chest pain or awareness of irregularity ) O2 Saturation: 97 Height: 6 ft 2 in Weight: 342 lb 3.2 oz Body Mass Index: 43.9 BMI Classification: Morbidly Obese Impression and Plan 1. Central and Obstructive Sleep Apnea-Hypopnea Syndrome, severe, with good treatment compliance and slight elevation of residual AHI. On CPAP therapy, the patient has better sleep quality and is more rested overall. The patients pressure will be changed to autoCPAP 10-15 cmH20 For elevation of residual AHI. Patient advised to contact me if pressure change is uncomfortable so that it can be adjusted. He has been at higher CPAP pressures but uncomfortable. Goals for apnea control discussed. Patient has gained weight. Currently patients BMI is 42.3 obesity class . Obesity increases the risk of apnea, CPAP pressure requirements and overall health risks especially cardiovascular and diabetes. Thus patient is advised to lose weight. Weight loss can be done with reducing portion size, reducing refined foods and balancing content with vegetables, fruit and protein. In addition tracking food intake will allow awareness of how to modify diet to achieve weight loss goals. Also eating more slowly will allow more awareness of food intake and enjoyment of food while assisting patient to modify intake at each meal. A diet consultation can be helpful in achieving optimal weight loss goals. The BMI chart was reviewed. Patient encouraged to discuss their weight loss goals with their PCP and consider a referral to a osteopathic physician. The patient's CPAP pressure range should accommodate some weight loss. Symptoms to report for additional pressure adjustment discussed. Patient's apnea severity and rationale for treatment to reduce apnea, improve sleep quality and reduce cardiovascular and cerebrovascular events was reviewed. I also reviewed the benefit of consistent device use of CPAP for hypertension, arrhythmia, diabetes. 2. Irregular apical pulse, noted some pauses in heart rate when checking blood pressure . Apical showed 6 pauses over 60 seconds. He is not aware of any irregular rate. He denies dyspnea or chest pain. Just saw driller brake lining 2 months ago and has holter monitor. Thus he is advised to follow up with PCP / driller brake lining for further evaluation. EKG offered and declined. * * Changeauto CPAP pressure to 10-15 cmH2O * Notify me if snoring with mask or feeling that the pressure is too much or too little * Attempt to lose weight * Follow up with driller brake lining for further evaluation of irregular heart rate * Follow up with PCP for osteopathic physician referral * Call this office if any problems using CPAP * Return for follow up in 1 year , or sooner if concerns arise Counseling Topics: Weight loss health impact, Discuss weight with PCP Visit Type: In Office Time Spent with Patient (minutes): 28 Provider Statement: I spent 100% of the Face to Face Visit with the patient with greater than 50% spent counseling the patient and coordination of care.
[2020-06-25 10:37] VITALS: BP 128/58
== END 2020-06-25 09:52 | disposition home or self-care (01) ==
LOC: SC 09:51
PROVIDERS: ATTEND Nurse Practitioner Family
DX: G47.33 Obstructive sleep apnea (adult) (pediatric) (principal); G47.31 Primary central sleep apnea; E66.01 Morbid (severe) obesity due to excess calories; Z68.41 Body mass index [BMI] 40.0-44.9, adult
CPT/HCPCS: 99214; G0463; 99212

== ENCOUNTER 2020-07-07 08:00 | Outpatient (CLI) | payer MEDICARE, OTHER | END 2020-07-07 23:59 | disposition home or self-care (01) | LOC: LAB.WCP 08:00 | PROVIDERS: ATTEND Family Medicine | DX: Z79.01 Long term (current) use of anticoagulants (principal) ==

== ENCOUNTER 2020-07-20 08:00 | Outpatient (CLI) | payer MEDICARE, OTHER | END 2020-07-20 23:59 | disposition home or self-care (01) | LOC: LAB.WCP 08:00 | PROVIDERS: ATTEND Internal Medicine | DX: Z79.01 Long term (current) use of anticoagulants (principal) ==

== ENCOUNTER 2020-08-03 08:00 | Outpatient (CLI) | payer MEDICARE, OTHER | END 2020-08-03 23:59 | disposition home or self-care (01) | LOC: LAB.WCP 08:00 | PROVIDERS: ATTEND Internal Medicine | DX: Z79.01 Long term (current) use of anticoagulants (principal) ==

== ENCOUNTER 2020-08-17 08:00 | Outpatient (CLI) | payer MEDICARE, OTHER | END 2020-08-17 23:59 | disposition home or self-care (01) | LOC: LAB.WCP 08:00 | PROVIDERS: ATTEND Internal Medicine | DX: Z79.01 Long term (current) use of anticoagulants (principal) ==

== ENCOUNTER 2020-09-09 | Outpatient (CLI) | payer MEDICARE, OTHER | END 2020-09-09 23:59 | disposition home or self-care (01) | DX: Z79.01 Long term (current) use of anticoagulants (principal) ==

== ENCOUNTER 2020-09-15 09:14 | Outpatient (CLI) | payer MEDICARE, OTHER ==
[2020-09-15 13:11] LABS: ESTIMATED AVERAGE GLUCOSE 192 mg/dL (70-100); HEMOGLOBIN A1c% 8.3 % (4.27-6.07)
[2020-09-15 14:08] LABS: CALCIUM 9.6 mg/dL (8.5-10.3); CREATININE 1.1 mg/dL (0.6-1.2); POTASSIUM 4.3 mmol/L (3.5-5.0)
[2020-09-15 14:14] LABS: CREATININE,URINE 98.8 mg/dL; MICROALBUM/CREATININE RATIO,UR 216.6 ug/mg (<30.0); MICROALBUMIN,URINE 21.4 mg/dL (0-300.0)
== END 2020-09-15 23:59 | disposition home or self-care (01) ==
LOC: LAB.WCP 09:14
PROVIDERS: ATTEND Internal Medicine
DX: E11.9 Type 2 diabetes mellitus without complications (principal)
CPT/HCPCS: 36415; 80048; 82043; 82570; 83036

== ENCOUNTER 2020-10-05 08:00 | Outpatient (CLI) | payer MEDICARE, OTHER | END 2020-10-05 23:59 | disposition home or self-care (01) | LOC: LAB.WCP 08:00 | PROVIDERS: ATTEND Internal Medicine | DX: Z79.01 Long term (current) use of anticoagulants (principal) ==

== ENCOUNTER 2020-10-14 08:00 | Outpatient (CLI) | payer MEDICARE, OTHER | END 2020-10-14 23:59 | disposition home or self-care (01) | LOC: LAB.WCP 08:00 | PROVIDERS: ATTEND Internal Medicine | DX: Z79.01 Long term (current) use of anticoagulants (principal) ==

== ENCOUNTER 2020-10-28 08:00 | Outpatient (CLI) | payer MEDICARE, OTHER | END 2020-10-28 23:59 | disposition home or self-care (01) | LOC: LAB.WCP 08:00 | PROVIDERS: ATTEND Internal Medicine | DX: Z79.01 Long term (current) use of anticoagulants (principal) ==

== ENCOUNTER 2020-11-17 10:04 | Outpatient (CLI) | payer MEDICARE, OTHER ==
[2020-11-17 12:54] LABS: CALCIUM 9.8 mg/dL (8.5-10.3); CREATININE 1.2 mg/dL (0.6-1.2); POTASSIUM 4.7 mmol/L (3.5-5.0); URIC ACID 5.4 mg/dL (2.6-7.2)
[2020-11-17 12:58] LABS: CREATININE,URINE 92.4 mg/dL; MICROALBUM/CREATININE RATIO,UR 69.3 ug/mg (<30.0); MICROALBUMIN,URINE 6.4 mg/dL (0-300.0)
[2020-11-17 13:06] LABS: ESTIMATED AVERAGE GLUCOSE 174 mg/dL (70-100); HEMOGLOBIN A1c% 7.7 % (4.27-6.07)
== END 2020-11-17 10:05 | disposition home or self-care (01) ==
LOC: LAB.N 10:04
PROVIDERS: ATTEND Internal Medicine
DX: E11.9 Type 2 diabetes mellitus without complications (principal); Z12.5 Encounter for screening for malignant neoplasm of prostate; M10.9 Gout, unspecified
CPT/HCPCS: 36415; 80048; 82043; 82570; 83036; 84550; G0103; 84153

== ENCOUNTER 2020-11-25 08:00 | Outpatient (CLI) | payer MEDICARE, OTHER | END 2020-11-25 23:59 | disposition home or self-care (01) | LOC: LAB.WCP 08:00 | PROVIDERS: ATTEND Internal Medicine | DX: Z79.01 Long term (current) use of anticoagulants (principal); I48.0 Paroxysmal atrial fibrillation ==

== ENCOUNTER 2020-12-21 08:00 | Outpatient (CLI) | payer MEDICARE, OTHER | END 2020-12-21 23:59 | disposition home or self-care (01) | LOC: LAB.WCP 08:00 | PROVIDERS: ATTEND Internal Medicine | DX: Z79.01 Long term (current) use of anticoagulants (principal); I48.0 Paroxysmal atrial fibrillation ==

== ENCOUNTER 2021-01-18 08:00 | Outpatient (CLI) | payer MEDICARE, OTHER | END 2021-01-18 23:59 | disposition home or self-care (01) | LOC: LAB.WCP 08:00 | PROVIDERS: ATTEND Internal Medicine | DX: I48.0 Paroxysmal atrial fibrillation (principal); Z79.01 Long term (current) use of anticoagulants ==

== ENCOUNTER 2021-02-18 08:00 | Outpatient (CLI) | payer MEDICARE, OTHER ==
[2021-02-18 12:36] LABS: BUN - BLOOD UREA NITROGEN 30 mg/dL (6-20); CALCIUM 9.2 mg/dL (8.5-10.3); CARBON DIOXIDE - CO2 27 mmol/L (21-32); CHLORIDE 102 mmol/L (101-111); CHOL/HDL RATIO 3.6 (<5.0); CHOLESTEROL 115 mg/dL; CREATININE 1.2 mg/dL (0.6-1.2); CREATININE,URINE 61.3 mg/dL; GFR - MDRD 59 (>89); GLUCOSE 168 mg/dL (70-100); HDL CHOLESTEROL 32 mg/dL; LDL CHOLESTEROL,CALCULATED 58 mg/dL; LDL/HDL RATIO 1.8 (<3.6); MICROALBUM/CREATININE RATIO,UR 84.8 ug/mg (<30.0); MICROALBUMIN,URINE 5.2 mg/dL (0-300.0); SODIUM 133 mmol/L (135-145); TRIGLYCERIDES 123 mg/dL; VLDL CHOLESTEROL 25 mg/dL
[2021-02-18 12:39] LABS: ESTIMATED AVERAGE GLUCOSE 177 mg/dL (70-100); HEMOGLOBIN A1c% 7.8 % (4.27-6.07)
== END 2021-02-18 23:59 | disposition home or self-care (01) ==
LOC: LAB.WCP 08:00
PROVIDERS: ATTEND Internal Medicine
DX: E11.9 Type 2 diabetes mellitus without complications (principal)
CPT/HCPCS: 36415; 80048; 80061; 82043; 82570; 83036; 83721

== ENCOUNTER 2021-02-24 08:00 | Outpatient (CLI) | payer MEDICARE, OTHER | END 2021-02-24 23:59 | disposition home or self-care (01) | LOC: LAB.WCP 08:00 | PROVIDERS: ATTEND Internal Medicine | DX: I48.0 Paroxysmal atrial fibrillation (principal); Z79.01 Long term (current) use of anticoagulants ==

== ENCOUNTER 2021-03-24 08:00 | Outpatient (CLI) | payer MEDICARE, OTHER | END 2021-03-24 23:59 | disposition home or self-care (01) | LOC: LAB.WCP 08:00 | PROVIDERS: ATTEND Internal Medicine | DX: I48.0 Paroxysmal atrial fibrillation (principal); Z79.01 Long term (current) use of anticoagulants ==

== ENCOUNTER 2021-04-21 08:00 | Outpatient (CLI) | payer MEDICARE, OTHER | END 2021-04-21 23:59 | disposition home or self-care (01) | LOC: LAB.WCP 08:00 | PROVIDERS: ATTEND Internal Medicine | DX: I48.0 Paroxysmal atrial fibrillation (principal); Z79.01 Long term (current) use of anticoagulants ==

== ENCOUNTER 2021-05-19 08:00 | Outpatient (CLI) | payer MEDICARE, OTHER | END 2021-05-19 23:59 | disposition home or self-care (01) | LOC: LAB.WCP 08:00 | PROVIDERS: ATTEND Internal Medicine | DX: Z79.01 Long term (current) use of anticoagulants (principal); I48.0 Paroxysmal atrial fibrillation ==

== ENCOUNTER 2021-05-25 09:15 | Outpatient (CLI) | payer MEDICARE, OTHER ==
[2021-05-25 12:31] LABS: ALBUMIN 4.3 g/dL (3.2-5.5); ALBUMIN/GLOBULIN RATIO 1.3 (1.0-2.2); ALKALINE PHOSPHATASE 56 IU/L (42-121); ALT ALANINE AMINOTRANSFERASE 29 IU/L (10-60); AST ASPARTATE AMINOTRANSFERASE 21 IU/L (10-42); BILIRUBIN,TOTAL 1.2 mg/dL (0.2-1.0); BUN - BLOOD UREA NITROGEN 34 mg/dL (6-20); CALCIUM 9.8 mg/dL (8.5-10.3); CARBON DIOXIDE - CO2 28 mmol/L (21-32); CHLORIDE 104 mmol/L (101-111); CHOL/HDL RATIO 3.9 (<5.0); CHOLESTEROL 133 mg/dL; CREATININE 1.1 mg/dL (0.6-1.2); GFR - MDRD 66 (>89); GLUCOSE 140 mg/dL (70-100); HDL CHOLESTEROL 34 mg/dL; LDL CHOLESTEROL,CALCULATED 76 mg/dL; LDL/HDL RATIO 2.2 (<3.6); POTASSIUM 4.8 mmol/L (3.5-5.0); SODIUM 143 mmol/L (135-145); TOTAL PROTEIN 7.5 g/dL (6.7-8.2); TRIGLYCERIDES 114 mg/dL; VLDL CHOLESTEROL 23 mg/dL
[2021-05-25 12:33] LABS: ESTIMATED AVERAGE GLUCOSE 194 mg/dL (70-100); HEMOGLOBIN A1c% 8.4 % (4.27-6.07)
== END 2021-05-25 23:59 | disposition home or self-care (01) ==
LOC: LAB.WCP 09:15
PROVIDERS: ATTEND Physician Assistant Medical
DX: E11.9 Type 2 diabetes mellitus without complications (principal)
CPT/HCPCS: 36415; 80053; 80061; 83036; 83721

== ENCOUNTER 2021-06-02 08:00 | Outpatient (CLI) | payer MEDICARE, OTHER | END 2021-06-02 23:59 | disposition home or self-care (01) | LOC: LAB.WCP 08:00 | PROVIDERS: ATTEND Internal Medicine | DX: I48.0 Paroxysmal atrial fibrillation (principal); Z79.01 Long term (current) use of anticoagulants ==

== ENCOUNTER 2021-06-22 08:57 | Outpatient (CLI) | payer MEDICARE, OTHER ==
[2021-06-22 09:30] VITALS: BP 133/66
--- NOTE | 2021-06-22 09:30 | SLEEP CARE CONSULTATION ---
Information from patient questionnaire entered by Katie Valencia. I have reviewed and concur with the information entered by Katie Valencia. This document represents the service I personally performed and the decisions made by , Aundrea Melo ARNP. History of Present Illness Service Date and Time: 06/22/2021 0857 Previous diagnosis: Severe, Obstructive Sleep Apnea-Hypopnea Syndrome, Central Sleep Apnea-Hypopnea Syndrome AHI: 51.4 (in 2017) Reason for follow up: annual Equipment type: CPAP Equipment obtained from: [employer] (getting supplies as needed) Mask style: Full face Backup mask available: Yes (old mask) Last cushion change: MondayJun 18 [facility] Type of Sleep Study: Polysomnography HPI additional information: OBI HARMON was diagnosed to have severe, AHI 51.4, obstructive/central sleep apnea-hypopnea syndrome and returned today for CPAP therapy annual follow-up. Sleep Study - Results Type of Sleep Study: Polysomnography Prior [facility]: Yes [facility] CPAP Compliance Data - Data Reviewed with Patient Average duration of nightly device use: 7 hours 40 minutes Compliance rate %: 99.4 Current pressure setting (cmH2O): 10-15 Humidity settin Heated hose settin Average residual AHI: 4.9 Average large leak: 2 seconds Subjective Missed days of use due to: reports: other (power outage) Patient concerns: denies: aerophagia, mask discomfort, air blowing in eyes, mask leak noise, condensation in mask/hose, nasal congestion, dry mouth, nose, throat, epistaxis, other Observed to snore while using device: No Current pressure setting perceived as: comfortable On therapy, patient: reports: sleeping better, awakening more refreshed, being more awake and alert during the day, more rested overall. denies: drowsiness while driving Initial [place] Sleepiness Scale score: 14 (in 2017) Current [place] Sleepiness Scale score: 4 Allergies and Home Medications Home medication list reviewed: Yes (no changes) Review of Systems Review of systems same as previous: Yes (no changes) Physical Exam Blood Pressure: 133/66 Cuff size: wrist Heart Rate: 72 O2 Saturation: 98 Height: 6 ft 2 in Weight: 345 lb Body Mass Index: 44.3 BMI Classification: Morbidly Obese Impression and Plan 1. Obstructive/Central Sleep Apnea-Hypopnea Syndrome, severe, with excellent treatment compliance and good apnea control. On CPAP therapy, the patient has better sleep quality and is more rested overall. Patient has a DreamStation that was last updated in 2017. He is very satisfied with current treatment and does not like to go without his device because he cannot sleep well at all. He denies any current issues or concerns with CPAP use. I informed the patient that [employer] has a recall on several devices like the patients machine. Patient was encouraged to register their device online with [employer] for the recall to see if their device is affected. If their device is affected they should start a claim. Patient denies any black particles seen in machine or hoses, any unusual odors coming from device. Patient has not experienced any physical symptoms such as upper airway irritation, headache, skin or eye irritation, asthma, nausea/vomiting, difficulty breathing or chest pain. Patient informed that they may use an inline CPAP filter that they can obtain online to reduce chance of any particles being inhaled or ingested. We discussed thoroughly the health risks of not using the CPAP versus continuing use with the filter in place. If patient is not able to sleep due to waking up choking, gasping for air or other respiratory distress that they may decide to continue using it until it is either replaced or repaired. Patient was encouraged to lose weight for their overall health and to reduce apneas. Patient voiced understanding and agreement with plan. Patient's apnea severity and rationale for treatment to reduce apnea, improve sleep quality and reduce cardiovascular and cerebrovascular events was reviewed. I also reviewed the benefit of consistent device use of CPAP for hypertension, arrhythmia and diabetes. * Continue auto CPAP pressure at 10-15 cmH2O * Notify me if snoring with mask or feeling that the pressure is too much or too little * Attempt to lose weight * Call this office if any problems using CPAP * Return for follow up in 1 year, or sooner if concerns arise Counseling Topics: Spare mask, Weight loss health impact Visit Type: In Office Time Spent with Patient (minutes): 20 Provider Statement: I spent 100% of the Face to Face Visit with the patient with greater than 50% spent counseling the patient and coordination of care.
== END 2021-06-22 08:58 | disposition home or self-care (01) ==
LOC: SC 08:57
PROVIDERS: ATTEND Nurse Practitioner Family
DX: G47.33 Obstructive sleep apnea (adult) (pediatric) (principal); E66.01 Morbid (severe) obesity due to excess calories; Z68.41 Body mass index [BMI] 40.0-44.9, adult
CPT/HCPCS: 99213; G0463; 99212

== ENCOUNTER 2021-06-30 08:00 | Outpatient (CLI) | payer MEDICARE, OTHER | END 2021-06-30 23:59 | disposition home or self-care (01) | LOC: LAB.WCP 08:00 | PROVIDERS: ATTEND Internal Medicine | DX: Z79.01 Long term (current) use of anticoagulants (principal); I48.0 Paroxysmal atrial fibrillation ==

== ENCOUNTER 2021-07-28 08:00 | Outpatient (CLI) | payer MEDICARE, OTHER | END 2021-07-28 23:59 | disposition home or self-care (01) | LOC: LAB.WCP 08:00 | PROVIDERS: ATTEND Internal Medicine | DX: I48.0 Paroxysmal atrial fibrillation (principal); Z79.01 Long term (current) use of anticoagulants ==

== ENCOUNTER 2021-08-25 08:00 | Outpatient (CLI) | payer MEDICARE, OTHER | END 2021-08-25 23:59 | disposition home or self-care (01) | LOC: LAB.WCP 08:00 | PROVIDERS: ATTEND Nurse Practitioner Family | DX: I48.0 Paroxysmal atrial fibrillation (principal); Z79.01 Long term (current) use of anticoagulants ==

== ENCOUNTER 2021-09-02 08:53 | Outpatient (CLI) | payer MEDICARE, OTHER ==
[2021-09-02 13:35] LABS: CALCIUM 9.9 mg/dL (8.5-10.3); CREATININE 1.2 mg/dL (0.6-1.2); POTASSIUM 5.1 mmol/L (3.5-5.0); URIC ACID 4.9 mg/dL (2.6-7.2)
[2021-09-02 20:42] LABS: ESTIMATED AVERAGE GLUCOSE 212 mg/dL (70-100)
== END 2021-09-02 23:59 | disposition home or self-care (01) ==
LOC: LAB.WCP 08:53
PROVIDERS: ATTEND Internal Medicine
DX: E11.9 Type 2 diabetes mellitus without complications (principal); M10.9 Gout, unspecified
CPT/HCPCS: 36415; 80048; 83036; 84550

== ENCOUNTER 2021-09-22 08:00 | Outpatient (CLI) | payer MEDICARE, OTHER | END 2021-09-22 23:59 | disposition home or self-care (01) | LOC: LAB.WCP 08:00 | PROVIDERS: ATTEND Internal Medicine | DX: I48.0 Paroxysmal atrial fibrillation (principal); Z79.01 Long term (current) use of anticoagulants ==

== ENCOUNTER 2021-10-20 08:00 | Outpatient (CLI) | payer MEDICARE, OTHER | END 2021-10-20 23:59 | disposition home or self-care (01) | LOC: LAB.N 08:00 | PROVIDERS: ATTEND Internal Medicine | DX: I48.0 Paroxysmal atrial fibrillation (principal); Z79.01 Long term (current) use of anticoagulants ==

== ENCOUNTER 2021-11-17 08:00 | Outpatient (CLI) | payer MEDICARE, OTHER | END 2021-11-17 23:59 | disposition home or self-care (01) | LOC: LAB.N 08:00 | PROVIDERS: ATTEND Internal Medicine | DX: I48.0 Paroxysmal atrial fibrillation (principal); Z79.01 Long term (current) use of anticoagulants ==

== ENCOUNTER 2021-12-13 09:23 | Outpatient (CLI) | payer MEDICARE, OTHER ==
[2021-12-13 12:30] LABS: BASOPHILS # (AUTO) 0.1 10^3/uL (0.0-0.1); BASOPHILS % (AUTO) 0.8 %; EOSINOPHILS # (AUTO) 0.2 10^3/uL (0.0-0.7); EOSINOPHILS % (AUTO) 3.7 %; HCT - HEMATOCRIT 38.8 % (42.0-52.0); HGB - HEMOGLOBIN 13.1 g/dL (14.0-18.0); LYMPHOCYTES # (AUTO) 1.8 10^3/uL (1.5-3.5); LYMPHOCYTES % (AUTO) 27.2 %; MEAN CORPUSCULAR HEMOGLOBIN 31.6 pg (27.0-31.0); MEAN CORPUSCULAR HGB CONC 33.8 g/dL (32.0-36.0); MEAN CORPUSCULAR VOLUME 93.5 fL (80.0-94.0); MEAN PLATELET VOLUME 10.7 fL (7.4-11.4); MONOCYTES # (AUTO) 0.7 10^3/uL (0.0-1.0); MONOCYTES % (AUTO) 10.4 %; NEUTROPHILS # (AUTO) 3.7 10^3/uL (1.5-6.6); PLT - PLATELET COUNT 196 10^3/uL (130-450); RED BLOOD COUNT 4.15 10^6/uL (4.70-6.10); RED CELL DISTRIBUTION WIDTH 15.5 % (12.0-15.0); WHITE BLOOD COUNT 6.5 x10^3/uL (4.8-10.8)
[2021-12-13 12:53] LABS: ALBUMIN 4.2 g/dL (3.2-5.5); ALBUMIN/GLOBULIN RATIO 1.3 (1.0-2.2); ALKALINE PHOSPHATASE 54 IU/L (42-121); ALT ALANINE AMINOTRANSFERASE 23 IU/L (10-60); AST ASPARTATE AMINOTRANSFERASE 23 IU/L (10-42); BUN - BLOOD UREA NITROGEN 39 mg/dL (6-20); CALCIUM 9.4 mg/dL (8.5-10.3); CARBON DIOXIDE - CO2 24 mmol/L (21-32); CHLORIDE 102 mmol/L (101-111); CHOL/HDL RATIO 4.2 (<5.0); CHOLESTEROL 133 mg/dL; CREATININE 1.3 mg/dL (0.6-1.2); GFR - MDRD 54 (>89); GLUCOSE 171 mg/dL (70-100); HDL CHOLESTEROL 32 mg/dL; LDL CHOLESTEROL,CALCULATED 73 mg/dL; LDL/HDL RATIO 2.3 (<3.6); POTASSIUM 5.1 mmol/L (3.5-5.0); SODIUM 136 mmol/L (135-145); TOTAL PROTEIN 7.5 g/dL (6.7-8.2); TRIGLYCERIDES 140 mg/dL; VLDL CHOLESTEROL 28 mg/dL
[2021-12-13 12:58] LABS: THYROID STIMULATING HORMONE 1.98 uIU/mL (0.34-5.60)
[2021-12-13 13:01] LABS: CREATININE,URINE 67.8 mg/dL; MICROALBUM/CREATININE RATIO,UR 42.8 ug/mg (<30.0); MICROALBUMIN,URINE 2.9 mg/dL (0-300.0)
[2021-12-13 13:57] LABS: ESTIMATED AVERAGE GLUCOSE 206 mg/dL (70-100); HEMOGLOBIN A1c% 8.8 % (4.27-6.07)
== END 2021-12-13 09:24 | disposition home or self-care (01) ==
LOC: LAB.N 09:23
PROVIDERS: ATTEND Internal Medicine
DX: I10 Essential (primary) hypertension (principal); I25.10 Atherosclerotic heart disease of native coronary artery without angina pectoris; E11.42 Type 2 diabetes mellitus with diabetic polyneuropathy; N40.1 Benign prostatic hyperplasia with lower urinary tract symptoms; N13.8 Other obstructive and reflux uropathy; I48.0 Paroxysmal atrial fibrillation; M10.9 Gout, unspecified
CPT/HCPCS: 36415; 80053; 80061; 82043; 82570; 83036; 83721; 84153; 84443; 84550; 85025

== ENCOUNTER 2022-01-27 08:00 | Outpatient (CLI) | payer MEDICARE, OTHER | END 2022-01-27 23:59 | disposition home or self-care (01) | LOC: LAB.N 08:00 | PROVIDERS: ATTEND Internal Medicine | DX: I48.0 Paroxysmal atrial fibrillation (principal); Z79.01 Long term (current) use of anticoagulants ==

== ENCOUNTER 2022-01-31 08:00 | Outpatient (CLI) | payer MEDICARE, OTHER | END 2022-01-31 23:59 | disposition home or self-care (01) | LOC: LAB.WCP 08:00 | PROVIDERS: ATTEND Internal Medicine | DX: I48.0 Paroxysmal atrial fibrillation (principal); Z79.01 Long term (current) use of anticoagulants ==

== ENCOUNTER 2022-02-02 08:00 | Outpatient (CLI) | payer MEDICARE, OTHER | END 2022-02-02 23:59 | disposition home or self-care (01) | LOC: LAB.WCP 08:00 | PROVIDERS: ATTEND Internal Medicine | DX: I48.0 Paroxysmal atrial fibrillation (principal); Z79.01 Long term (current) use of anticoagulants ==

== ENCOUNTER 2022-02-09 08:00 | Outpatient (CLI) | payer MEDICARE, OTHER | END 2022-02-09 08:01 | disposition home or self-care (01) | LOC: LAB.WCP 08:00 | PROVIDERS: ATTEND Internal Medicine | DX: I48.0 Paroxysmal atrial fibrillation (principal); Z79.01 Long term (current) use of anticoagulants ==

== ENCOUNTER 2022-04-06 08:00 | Outpatient (CLI) | payer MEDICARE, OTHER | END 2022-04-06 23:59 | disposition home or self-care (01) | LOC: LAB.WCP 08:00 | PROVIDERS: ATTEND Internal Medicine | DX: I48.0 Paroxysmal atrial fibrillation (principal); Z79.01 Long term (current) use of anticoagulants ==

== ENCOUNTER 2022-05-18 08:00 | Outpatient (CLI) | payer MEDICARE, OTHER | END 2022-05-18 23:59 | disposition home or self-care (01) | LOC: LAB.WCP 08:00 | PROVIDERS: ATTEND Internal Medicine | DX: Z79.01 Long term (current) use of anticoagulants (principal); I48.0 Paroxysmal atrial fibrillation ==

== ENCOUNTER 2022-06-15 08:00 | Outpatient (CLI) | payer MEDICARE, OTHER | END 2022-06-15 23:59 | disposition home or self-care (01) | LOC: LAB.WCP 08:00 | PROVIDERS: ATTEND Family Medicine | DX: I48.0 Paroxysmal atrial fibrillation (principal); Z79.01 Long term (current) use of anticoagulants ==

== ENCOUNTER → 2022-07-27 | Outpatient (CLI) | payer MEDICARE, OTHER | LOC: LAB.WCP 08:00 | PROVIDERS: ATTEND Internal Medicine | DX: Z79.01 Long term (current) use of anticoagulants (principal); I48.0 Paroxysmal atrial fibrillation ==

== ENCOUNTER 2022-07-28 09:05 | Outpatient (CLI) | payer MEDICARE, OTHER ==
--- NOTE | 2022-07-28 09:48 | SLEEP CARE CONSULTATION ---
Information from patient questionnaire entered by Genevieve Watters. I have reviewed and concur with the information entered by Genevieve Watters. This document represents the service I personally performed and the decisions made by me, Aundrea Melo ARNP. History of Present Illness Service Date and Time: 07/28/2022 0905 Previous diagnosis: Severe, Obstructive Sleep Apnea-Hypopnea Syndrome, Central Sleep Apnea-Hypopnea Syndrome AHI: 51.4 (in 2017) Reason for follow up: annual (LAST SEEN 06/2021) Equipment type: CPAP (DREAM STATION) Equipment obtained from: [employer] (getting supplies as needed) Mask style: Full face Backup mask available: Yes (other mask) Last cushion change: 10 days ago Prior sleep studies: Yes Year and Where: 2016 - [facility] Type of Sleep Study: Polysomnography HPI additional information: OBI HARMON was diagnosed to have severe, AHI 51.4, obstructive sleep apnea- hypopnea syndrome and returned today for CPAP therapy annual follow-up. Sleep Study - Results Type of Sleep Study: Polysomnography [facility] Compliance Data - Data Reviewed with Patient Average duration of nightly device use: 9 HRS, 4 MIN, 59SEC Compliance rate %: 97.8 (01/27/2022-07/25/2022; 176/180 days used) Current pressure setting (cmH2O): 10-15 Average residual AHI: 3.7 Central apnea: 0.1 Obstructive apnea: 0.6 Hypopnea: 3 Average large leak: 31 secs Subjective Missed days of use due to: reports: other (power outage) Patient concerns: denies: aerophagia, mask discomfort, air blowing in eyes, mask leak noise, condensation in mask/hose, nasal congestion, dry mouth, nose, throat, epistaxis Observed to snore while using device: No Current pressure setting perceived as: comfortable On therapy, patient: reports: sleeping better, awakening more refreshed, being more awake and alert during the day, more rested overall. denies: drowsiness while driving Initial [place] Sleepiness Scale score: 14 (in 2017) Current [place] Sleepiness Scale score: 3 (07/28/2022) Allergies and Home Medications Drug allergies reviewed: Yes (NKDA) Home medication list reviewed: Yes (no changes) Review of Systems Review of systems same as previous: Yes (no changes) Physical Exam Vital signs obtained and entered by: GENEVIEVE Moon MA Blood Pressure: 124/76 (LEFT ARM) Cuff size: regular Heart Rate: 71 O2 Saturation: 98 Height: 6 ft 2 in Weight: 348 lb 6.4 oz Body Mass Index: 44.7 BMI Classification: Morbidly Obese Impression and Plan 1. Obstructive Sleep Apnea-Hypopnea Syndrome, severe, with good treatment compliance and good apnea control. On CPAP therapy, the patient has better sleep quality and is more rested overall. Patient has significant improvement of their sleep apnea and are satisfied with current CPAP therapy. I informed the patient that [employer] has a recall on several devices like the patients machine. Patient denies any black particles seen in machine or hoses, any unusual odors coming from device. Patient has not experienced any physical symptoms such as upper airway irritation, headache, skin or eye irritation, asthma, nausea/vomiting, difficulty breathing or chest pain. If patient is not able to sleep due to waking up choking, gasping for air or other respiratory distress that they may decide to continue using it until it is either replaced or repaired. Since the patients current machine is at least 5 years old, the patient is opting to update their device with a device that is not on the recall. Patient voiced understanding and agreement with plan. Patient's apnea severity and rationale for treatment to reduce apnea, improve sleep quality and reduce cardiovascular and cerebrovascular events was reviewed. I also reviewed the benefit of consistent device use of CPAP for hypertension, arrhythmia and diabetes. 2. Obesity, unspecified. Currently patients BMI is 44.7. He states he has lost 8 lbs in last 6 weeks. He is cutting out extra snacking at night and smaller portions. Obesity increases the risk of apnea, CPAP pressure requirements and overall health risks especially cardiovascular and diabetes. Thus patient is advised to continue to try to lose weight. * Continue auto CPAP pressure at 10-15 cmH2O * Update machine * Update supplies * Notify me if snoring with mask or feeling that the pressure is too much or too little * Attempt to lose weight * Call this office if any problems using CPAP * Return for follow up one month after obtaining new device, or sooner if concerns arise Counseling Topics: Spare mask, Weight loss health impact Prescriptions: Auto CPAP, Device supplies Visit Type: In Office Time Spent with Patient (minutes): 20 Provider Statement: I spent 100% of the Face to Face Visit with the patient with greater than 50% spent counseling the patient and coordination of care.
[2022-07-28 09:49] VITALS: BP 124/76
== END 2022-07-28 09:06 | disposition home or self-care (01) ==
LOC: SC 09:05
PROVIDERS: ATTEND Nurse Practitioner Family
DX: G47.33 Obstructive sleep apnea (adult) (pediatric) (principal); E66.01 Morbid (severe) obesity due to excess calories; Z68.41 Body mass index [BMI] 40.0-44.9, adult
CPT/HCPCS: 99213; G0463; 99212

== ENCOUNTER → 2022-08-24 | Outpatient (CLI) | payer MEDICARE, OTHER | LOC: LAB.N 08:00 | PROVIDERS: ATTEND Internal Medicine | DX: Z79.01 Long term (current) use of anticoagulants (principal); I48.0 Paroxysmal atrial fibrillation ==

== ENCOUNTER → 2022-09-21 | Outpatient (CLI) | payer MEDICARE, OTHER | LOC: LAB.WCP 08:00 | PROVIDERS: ATTEND Internal Medicine | DX: Z79.01 Long term (current) use of anticoagulants (principal); I48.0 Paroxysmal atrial fibrillation ==

== ENCOUNTER 2022-10-19 08:00 | Outpatient (CLI) | payer MEDICARE, OTHER | END 2022-10-19 23:59 | disposition home or self-care (01) | LOC: LAB.WCP 08:00 | PROVIDERS: ATTEND Internal Medicine | DX: Z79.01 Long term (current) use of anticoagulants (principal); I48.0 Paroxysmal atrial fibrillation ==

== ENCOUNTER 2022-11-02 08:00 | Outpatient (CLI) | payer MEDICARE, OTHER | END 2022-11-02 23:59 | disposition home or self-care (01) | LOC: LAB.WCP 08:00 | PROVIDERS: ATTEND Internal Medicine | DX: Z79.01 Long term (current) use of anticoagulants (principal); I48.0 Paroxysmal atrial fibrillation ==

== ENCOUNTER 2022-11-16 08:00 | Outpatient (CLI) | payer MEDICARE, OTHER | END 2022-11-16 23:59 | disposition home or self-care (01) | LOC: LAB.N 08:00 | PROVIDERS: ATTEND Internal Medicine | DX: Z79.01 Long term (current) use of anticoagulants (principal); I48.0 Paroxysmal atrial fibrillation ==

== ENCOUNTER 2022-11-30 08:00 | Outpatient (CLI) | payer MEDICARE, OTHER | END 2022-11-30 23:59 | disposition home or self-care (01) | LOC: LAB.WCP 08:00 | PROVIDERS: ATTEND Internal Medicine | DX: Z79.01 Long term (current) use of anticoagulants (principal); I48.0 Paroxysmal atrial fibrillation ==

== ENCOUNTER 2022-12-07 09:04 | Outpatient (CLI) | payer MEDICARE, OTHER ==
[2022-12-07 11:52] LABS: CALCIUM 9.4 mg/dL (8.5-10.3); CREATININE 1.6 mg/dL (0.6-1.2); POTASSIUM 4.9 mmol/L (3.5-5.0); URIC ACID 6.2 mg/dL (2.6-7.2)
[2022-12-07 12:12] LABS: ESTIMATED AVERAGE GLUCOSE 189 mg/dL (70-100); HEMOGLOBIN A1c% 8.2 % (4.27-6.07)
== END 2022-12-07 09:05 | disposition home or self-care (01) ==
LOC: LAB.N 09:04
PROVIDERS: ATTEND Internal Medicine
DX: E11.42 Type 2 diabetes mellitus with diabetic polyneuropathy (principal); M10.9 Gout, unspecified
CPT/HCPCS: 36415; 80048; 83036; 84550

== ENCOUNTER 2022-12-23 08:00 | Outpatient (CLI) | payer MEDICARE, OTHER | END 2022-12-23 23:58 | disposition home or self-care (01) | LOC: LAB.WCP 08:00 | PROVIDERS: ATTEND Internal Medicine | DX: I48.0 Paroxysmal atrial fibrillation (principal); Z79.01 Long term (current) use of anticoagulants ==

== ENCOUNTER 2023-01-25 08:00 | Outpatient (CLI) | payer MEDICARE, OTHER | END 2023-01-25 23:59 | disposition home or self-care (01) | LOC: LAB.N 08:00 | PROVIDERS: ATTEND Internal Medicine | DX: Z79.01 Long term (current) use of anticoagulants (principal); I48.0 Paroxysmal atrial fibrillation ==

== ENCOUNTER 2023-02-22 08:00 | Outpatient (CLI) | payer MEDICARE, OTHER | END 2023-02-22 23:59 | disposition home or self-care (01) | LOC: LAB.WCP 08:00 | PROVIDERS: ATTEND Internal Medicine | DX: Z79.01 Long term (current) use of anticoagulants (principal); I48.0 Paroxysmal atrial fibrillation ==

== ENCOUNTER 2023-03-24 08:00 | Outpatient (CLI) | payer MEDICARE, OTHER | END 2023-03-24 23:59 | disposition home or self-care (01) | LOC: LAB.N 08:00 | PROVIDERS: ATTEND Internal Medicine | DX: Z79.01 Long term (current) use of anticoagulants (principal); I48.0 Paroxysmal atrial fibrillation ==

== ENCOUNTER 2023-05-12 08:00 | Outpatient (CLI) | payer MEDICARE, OTHER | END 2023-05-12 23:59 | disposition home or self-care (01) | LOC: LAB.N 08:00 | PROVIDERS: ATTEND Internal Medicine | DX: I48.0 Paroxysmal atrial fibrillation (principal); Z79.01 Long term (current) use of anticoagulants ==

== ENCOUNTER 2023-06-23 08:00 | Outpatient (CLI) | payer MEDICARE, OTHER | END 2023-06-23 23:59 | disposition home or self-care (01) | LOC: LAB.N 08:00 | PROVIDERS: ATTEND Internal Medicine | DX: I48.0 Paroxysmal atrial fibrillation (principal); Z79.01 Long term (current) use of anticoagulants ==

== ENCOUNTER 2023-07-05 08:00 | Outpatient (CLI) | payer MEDICARE, OTHER | END 2023-07-05 23:59 | disposition home or self-care (01) | LOC: LAB.N 08:00 | PROVIDERS: ATTEND Internal Medicine | DX: Z79.01 Long term (current) use of anticoagulants (principal); I48.0 Paroxysmal atrial fibrillation ==

== ENCOUNTER 2023-07-14 08:00 | Outpatient (CLI) | payer MEDICARE, OTHER | END 2023-07-14 23:59 | disposition home or self-care (01) | LOC: LAB.N 08:00 | PROVIDERS: ATTEND Internal Medicine | DX: Z79.01 Long term (current) use of anticoagulants (principal); I48.0 Paroxysmal atrial fibrillation ==

== ENCOUNTER 2023-07-26 08:00 | Outpatient (CLI) | payer MEDICARE, OTHER | END 2023-07-26 23:59 | disposition home or self-care (01) | LOC: LAB.WCP 08:00 | PROVIDERS: ATTEND Internal Medicine | DX: Z79.01 Long term (current) use of anticoagulants (principal); I48.0 Paroxysmal atrial fibrillation ==

== ENCOUNTER 2023-08-04 08:31 | Outpatient (CLI) | payer MEDICARE, OTHER ==
--- NOTE | 2023-08-04 08:55 | Sleep Patient Instructions ---
Sleep Center Visit Summary - Patient Visit Information Reason for Visit: Annual Visit - Patient Instructions Additional Instructions: You will continue with CPAP therapy with pressure set at 10-15 cmH2O. A supply prescription will be updated with your DME. We encourage you to continue to try to lose weight. Please follow up with the sleep care office in 1 year. - Clinic Information Contact: [facility] [address] [place] [address] [email or web address] T: [phone]
--- NOTE | 2023-08-04 08:58 | SLEEP CARE CONSULTATION ---
Information from patient questionnaire entered by Genevieve Watters. I have reviewed and concur with the information entered by Genevieve Watters. This document represents the service I personally performed and the decisions made by me, Aundrea Melo ARNP. History of Present Illness Service Date and Time: 08/04/2023 0831 Previous diagnosis: Severe, Obstructive Sleep Apnea-Hypopnea Syndrome, Central Sleep Apnea-Hypopnea Syndrome AHI: 51.4 (in 2017) Reason for follow up: annual (LAST SEEN 07/2022) Equipment type: CPAP (RESMED Airsense 11, s/u 07/2022) Equipment obtained from: [facility] (getting supplies as needed) Mask style: Full face Backup mask available: Yes Last cushion change: 2 weeks ago Prior sleep studies: Yes Year and Where: 2016 - [facility] Type of Sleep Study: Polysomnography HPI additional information: OBI HARMON was diagnosed to have severe, AHI 51.4, obstructive/central sleep apnea-hypopnea syndrome and returned today for CPAP therapy annual follow-up. Sleep Study - Results Type of Sleep Study: Polysomnography [facility] Compliance Data - Data Reviewed with Patient Average duration of nightly device use: 9 HRS 8 MINS Compliance rate %: 96 (08/02/2022-08/01/2023; 351/365 days used) Current pressure setting (cmH2O): 10-15 Average residual AHI: 2.1 Central apnea: 0.2 Obstructive apnea: 0.1 Hypopnea: 1.8 Average large leak: 2.7 L/min Subjective Missed days of use due to: reports: other (power outages) Patient concerns: denies: aerophagia, mask discomfort, air blowing in eyes, mask leak noise, condensation in mask/hose, nasal congestion, dry mouth, nose, throat, epistaxis Observed to snore while using device: No Current pressure setting perceived as: comfortable On therapy, patient: reports: sleeping better, awakening more refreshed, being more awake and alert during the day, more rested overall. denies: drowsiness while driving Initial L[place] Sleepiness Scale score: 14 (in 2017) Current [place] Sleepiness Scale score: 4 Allergies and Home Medications Known drug allergies: No Drug allergies reviewed: Yes Home medication list reviewed: Yes (no changes) Allergy and home medication list: Allergies No Known Drug Allergies Allergy (Verified 08/03/23 13:27) Review of Systems Review of systems same as previous: Yes (no changes) Physical Exam Vital signs obtained and entered by: AUNDREA HAMILTON Blood Pressure: 140/74 Cuff size: regular (left arm) Heart Rate: 62 O2 Saturation: 98 Height: 6 ft 2 in Weight: 359 lb 3.2 oz Weight change since last visit: 10 lb gain but has recently lose 5-8 pounds with medication changes Body Mass Index: 46.0 BMI Classification: Morbidly Obese Impression and Plan 1. Obstructive and Central Sleep Apnea-Hypopnea Syndrome, severe, with good treatment compliance and good apnea control. On CPAP therapy, the patient has better sleep quality and is more rested overall. Patient has significant improvement of their sleep apnea and is satisfied with current CPAP therapy. Patient denies problems with oral dryness, nasal congestion, epistaxis, skin irritation or aerophagia. Patient's apnea severity and rationale for treatment to reduce apnea, improve sleep quality and reduce cardiovascular and cerebrovascular events was reviewed. I also reviewed the benefit of consistent device use of CPAP for hypertension, arrhythmia and diabetes. 2. Obesity, unspecified. Currently patients BMI is 46. He has gained weight over the year but with diabetic medication changes has lost weight in last few months. Obesity increases the risk of apnea, CPAP pressure requirements and overall health risks especially cardiovascular and diabetes. Thus patient is advised to lose weight. * Continue auto CPAP pressure at 10-15 cmH2O * Update supply prescription * Notify me if snoring with mask or feeling that the pressure is too much or too little * Attempt to lose weight * Call this office if any problems using CPAP * Return for follow up in 1 year, or sooner if concerns arise Counseling Topics: Spare mask, Weight loss health impact Prescriptions: Device supplies Follow up with Sleep Care in: 1 year Visit Type: In Office Time Spent with Patient (minutes): 20 Provider Statement: I spent 100% of the Face to Face Visit with the patient with greater than 50% spent counseling the patient and coordination of care.
[2023-08-04 09:00] VITALS: BP 140/74; O2SAT 98
== END 2023-08-04 08:32 | disposition home or self-care (01) ==
LOC: SC 08:31
PROVIDERS: ATTEND Nurse Practitioner Family
DX: G47.33 Obstructive sleep apnea (adult) (pediatric) (principal); G47.31 Primary central sleep apnea; E66.01 Morbid (severe) obesity due to excess calories; Z68.42 Body mass index [BMI] 45.0-49.9, adult
CPT/HCPCS: 99213; G0463; 99212

== ENCOUNTER 2023-08-16 08:00 | Outpatient (CLI) | payer MEDICARE, OTHER | END 2023-08-16 23:59 | disposition home or self-care (01) | LOC: LAB.WCP 08:00 | PROVIDERS: ATTEND Internal Medicine | DX: Z79.01 Long term (current) use of anticoagulants (principal); I48.0 Paroxysmal atrial fibrillation ==

== ENCOUNTER 2023-08-25 09:11 | Outpatient (CLI) | payer MEDICARE, OTHER ==
[2023-08-25 13:28] LABS: CALCIUM 10.1 mg/dL (8.5-10.3); CREATININE 1.4 mg/dL (0.6-1.3); POTASSIUM 5.1 mmol/L (3.5-4.5)
[2023-08-25 13:38] LABS: ESTIMATED AVERAGE GLUCOSE 169 mg/dL (70-100); HEMOGLOBIN A1c% 7.5 % (4.27-6.07)
== END 2023-08-25 09:12 | disposition home or self-care (01) ==
LOC: LAB.N 09:11
PROVIDERS: ATTEND Internal Medicine
DX: E11.42 Type 2 diabetes mellitus with diabetic polyneuropathy (principal)
CPT/HCPCS: 36415; 80048; 83036

== ENCOUNTER 2023-09-13 08:00 | Outpatient (CLI) | payer MEDICARE, OTHER | END 2023-09-13 08:01 | disposition home or self-care (01) | LOC: LAB.WCP 08:00 | PROVIDERS: ATTEND Internal Medicine | DX: I48.0 Paroxysmal atrial fibrillation (principal); Z79.01 Long term (current) use of anticoagulants ==

== ENCOUNTER 2023-10-11 08:00 | Outpatient (CLI) | payer MEDICARE, OTHER | END 2023-10-11 08:01 | disposition home or self-care (01) | LOC: LAB.WCP 08:00 | PROVIDERS: ATTEND Internal Medicine | DX: I48.0 Paroxysmal atrial fibrillation (principal); Z79.01 Long term (current) use of anticoagulants ==

== ENCOUNTER 2023-10-18 08:00 | Outpatient (CLI) | payer MEDICARE, OTHER | END 2023-10-18 08:01 | disposition home or self-care (01) | LOC: LAB.N 08:00 | PROVIDERS: ATTEND Internal Medicine | DX: I48.0 Paroxysmal atrial fibrillation (principal); Z79.01 Long term (current) use of anticoagulants ==

== ENCOUNTER 2023-12-01 08:00 | Outpatient (CLI) | payer MEDICARE, OTHER | END 2023-12-01 08:01 | disposition home or self-care (01) | LOC: LAB.N 08:00 | PROVIDERS: ATTEND Internal Medicine | DX: I48.0 Paroxysmal atrial fibrillation (principal); Z79.01 Long term (current) use of anticoagulants ==

== ENCOUNTER 2024-01-03 08:00 | Outpatient (CLI) | payer MEDICARE, OTHER | END 2024-01-03 08:01 | disposition home or self-care (01) | LOC: LAB.WCP 08:00 | PROVIDERS: ATTEND Internal Medicine | DX: Z79.01 Long term (current) use of anticoagulants (principal); I48.0 Paroxysmal atrial fibrillation ==

== ENCOUNTER 2024-02-07 08:00 | Outpatient (CLI) | payer MEDICARE, OTHER | END 2024-02-07 08:01 | disposition home or self-care (01) | LOC: LAB.WCP 08:00 | PROVIDERS: ATTEND Internal Medicine | DX: I48.0 Paroxysmal atrial fibrillation (principal); Z79.01 Long term (current) use of anticoagulants ==

== ENCOUNTER 2024-02-19 08:00 | Outpatient (CLI) | payer MEDICARE, OTHER | END 2024-02-19 23:59 | disposition home or self-care (01) | LOC: LAB.WCP 08:00 | PROVIDERS: ATTEND Internal Medicine | DX: I48.0 Paroxysmal atrial fibrillation (principal); Z79.01 Long term (current) use of anticoagulants ==

== ENCOUNTER 2024-03-09 12:11 | Outpatient (CLI) | payer MEDICARE, OTHER ==
--- NOTE | 2024-03-09 16:20 | XRAY Report ---
PROCEDURE: Chest 2V INDICATIONS: ACUTE COUGH TECHNIQUE: 2 views of the chest were acquired. COMPARISON: None. FINDINGS: Surgical changes and devices: None. Lungs and pleura: No pleural effusions or pneumothorax. Lungs are clear. Mediastinum: Mediastinal contours appear normal. Heart size is normal. There is elevation of the right hemidiaphragm. Bones and chest wall: No suspicious bony lesions. Overlying soft tissues appear unremarkable. IMPRESSION: No acute cardiopulmonary process. Reviewed by: Radha Jenkins MD on 03/09/2024 4:18 PM PDT Approved by: Radha Jenkins MD on 03/09/2024 4:18 PM PDT Station ID: [id number]
== END 2024-03-09 12:12 | disposition home or self-care (01) ==
LOC: DI 12:11
PROVIDERS: ATTEND Physician Assistant Medical
DX: R05.1 Acute cough (principal)

== ENCOUNTER 2024-03-20 08:00 | Outpatient (CLI) | payer MEDICARE, OTHER | END 2024-03-20 23:59 | disposition home or self-care (01) | LOC: LAB.WCP 08:00 | PROVIDERS: ATTEND Internal Medicine | DX: I48.0 Paroxysmal atrial fibrillation (principal); Z79.01 Long term (current) use of anticoagulants ==

== ENCOUNTER 2024-05-02 09:56 | Outpatient (CLI) | payer MEDICARE, OTHER ==
[2024-05-02 10:25] LABS: CHOL/HDL RATIO 4.9 (<5.0); CHOLESTEROL 151 mg/dL; HDL CHOLESTEROL 31 mg/dL; LDL CHOLESTEROL,CALCULATED 67 mg/dL; LDL/HDL RATIO 2.2 (<3.6); TRIGLYCERIDES 266 mg/dL; VLDL CHOLESTEROL 53 mg/dL
== END 2024-05-02 09:57 | disposition home or self-care (01) ==
LOC: LAB 09:56
PROVIDERS: ATTEND Internal Medicine Cardiovascular Disease
DX: I73.9 Peripheral vascular disease, unspecified (principal); I65.23 Occlusion and stenosis of bilateral carotid arteries
CPT/HCPCS: 36415; 80061; 83721

== ENCOUNTER 2024-05-10 08:00 | Outpatient (CLI) | payer MEDICARE, OTHER | END 2024-05-10 23:59 | disposition home or self-care (01) | LOC: LAB.WCP 08:00 | PROVIDERS: ATTEND Internal Medicine | DX: I48.0 Paroxysmal atrial fibrillation (principal); Z79.01 Long term (current) use of anticoagulants ==

== ENCOUNTER 2024-05-24 08:00 | Outpatient (CLI) | payer MEDICARE, OTHER | END 2024-05-24 23:59 | disposition home or self-care (01) | LOC: LAB.WCP 08:00 | PROVIDERS: ATTEND Internal Medicine | DX: I48.0 Paroxysmal atrial fibrillation (principal); Z79.01 Long term (current) use of anticoagulants ==

== ENCOUNTER 2024-06-05 09:03 | Outpatient (CLI) | payer MEDICARE, OTHER ==
[2024-06-05 11:37] LABS: BASOPHILS # (AUTO) 0.1 10^3/uL (0.0-0.1); BASOPHILS % (AUTO) 1.2 %; EOSINOPHILS # (AUTO) 0.2 10^3/uL (0.0-0.7); EOSINOPHILS % (AUTO) 3.8 %; HCT - HEMATOCRIT 38.5 % (42.0-52.0); HGB - HEMOGLOBIN 12.7 g/dL (14.0-18.0); LYMPHOCYTES # (AUTO) 1.9 10^3/uL (1.5-3.5); MEAN CORPUSCULAR HEMOGLOBIN 31.7 pg (27.0-31.0); MEAN PLATELET VOLUME 10.2 fL (7.4-11.4); MONOCYTES # (AUTO) 0.6 10^3/uL (0.0-1.0); MONOCYTES % (AUTO) 9.9 %; NEUTROPHILS # (AUTO) 3.2 10^3/uL (1.5-6.6); NEUTROPHILS % (AUTO) 52.9 %; PLT - PLATELET COUNT 222 10^3/uL (130-450); RED BLOOD COUNT 4.01 10^6/uL (4.70-6.10); WHITE BLOOD COUNT 6.1 x10^3/uL (4.8-10.8)
[2024-06-05 11:56] LABS: ALBUMIN 4.1 g/dL (3.2-5.5); ALBUMIN/GLOBULIN RATIO 1.4 (1.0-2.2); BILIRUBIN,TOTAL 0.5 mg/dL (0.2-1.0); CALCIUM 9.9 mg/dL (8.5-10.3); CREATININE 1.2 mg/dL (0.6-1.3); POTASSIUM 5.1 mmol/L (3.5-4.5); URIC ACID 5.3 mg/dL (4.4-7.6)
== END 2024-06-05 09:04 | disposition home or self-care (01) ==
LOC: LAB.N 09:03
PROVIDERS: ATTEND Internal Medicine Rheumatology
DX: M10.9 Gout, unspecified (principal)
CPT/HCPCS: 36415; 80053; 84550; 85025